=== PATIENT | female | born 1990 ===

== ENCOUNTER 2016-09-29 15:31 | Inpatient (IN) | payer OTHER ==
--- NOTE | 2016-09-29 15:51 | ED PDOC ---
HPI: Headache Time Seen by Provider: 09/29/16 15:36 Chief Complaint (Nursing): Headache Chief Complaint (Provider): Headache History Per: Patient History/Exam Limitations: no limitations Onset/Duration Of Symptoms: Hrs Current Symptoms Are (Timing): Still Present Severity: Moderate Quality: "Pain" Associated Symptoms: Blurred Vision, Extremity Weakness Additional Complaint(s): Patient is a 26 year old female who is reportedly 23 weeks , presents to ED for left sided headache with dizziness that began last night. States she woke this morning at 0700 with left facial and left arm numbness and palpations. Patient notes a history of [place] palsy a year ago on the left side, instructed to come to ED by [place] as pt was cleared by obgyn but predominant symptoms were neurological. NIHSS Stroke Scale - Date/Time Evaluation Performed Date Performed: 09/29/16 Time Performed: 15:35 When Was NIHSS Performed: Baseline - How Severe is the Stroke Level of Consciousness: 0=Alert LOC to Questions: 0=Both comments correct LOC to commands: 0=Obeys both correctly Best Gaze: 0=Normal Visual: 0=No visual loss Facial: 1=Minor asymmetry Motor Arm - Left: 0=No drift Motor Arm - Right: 0=No drift Motor Leg - Left: 0=No drift Motor Leg - Right: 0=No drift Limb Ataxia: 0=Absent Sensory: 0=Normal Best Language: 0=No aphasia Dysarthia: 0=Normal articulation Extinction & Inattention (Neglect): 0=Normal, no object Score: 1 Severity Of Stroke: 1-4 = Minor Stroke Past Medical History Reviewed: Historical Data, Nursing Documentation, Vital Signs Vital Signs: Last Vital Signs Temp 98.5 F 09/29/16 15:37 Pulse 78 09/29/16 15:37 Resp 20 09/29/16 15:37 BP 117/53 L 09/29/16 15:37 Pulse Ox 100 09/29/16 15:37 - Medical History PMH: Asthma (no episodes x8 years), Migraine Denies: Kidney Stones, Chronic Kidney Disease - Surgical History Surgical History: Appendectomy, Tonsillectomy - Family History Family History: States: Hypertension - Living Arrangements Living Arrangements: With Family - Social History Current smoker - smoking cessation education provided: No Alcohol: None Drugs: Denies - Immunization History Hx Tetanus Toxoid Vaccination: No Hx Influenza Vaccination: No Hx Pneumococcal Vaccination: No - Home Medications Home Medications: Ambulatory Orders Medication Instructions Recorded Levothyroxine [Synthroid] 50 mcg PO DAILY 09/29/16 - Allergies Allergies/Adverse Reactions: Allergies Allergy/AdvReac Type Severity Reaction Status Date / Time nitrofurantoin Allergy RASH Verified 09/29/16 15:37 [From Macrobid] nitrofurantoin Allergy RASH Verified 09/29/16 15:37 macrocrystalline [From Macrobid] Review of Systems ROS Statement: Except As Marked, All Systems Reviewed And Found Negative Constitutional: Negative for: Fever Eyes: Negative for: Vision Change Cardiovascular: Positive for: Palpitations. Negative for: Chest Pain, Light Headedness Respiratory: Negative for: Shortness of Breath Gastrointestinal: Negative for: Nausea, Vomiting Musculoskeletal: Negative for: Neck Pain, Back Pain Neurological: Positive for: Numbness (left arm, left face), Headache, Dizziness Physical Exam - Reviewed Nursing Documentation Reviewed: Yes Vital Signs Reviewed: Yes - Physical Exam Appears: Positive for: Non-toxic, No Acute Distress Head Exam: Positive for: ATRAUMATIC Skin: Positive for: Normal Color, Warm Eye Exam: Positive for: Normal appearance, EOMI, PERRL ENT: Positive for: Normal ENT Inspection Neck: Positive for: Normal, Painless ROM Cardiovascular/Chest: Positive for: Regular Rate, Rhythm. Negative for: Murmur Respiratory: Positive for: Normal Breath Sounds. Negative for: Respiratory Distress Gastrointestinal/Abdominal: Positive for: Normal Exam Extremity: Positive for: Normal ROM, Other (LE strength 5/5. however left upper extremity with slightly decreased sensation ) Neurologic/Psych: Positive for: Alert, box repairer II-XII (slight right sided facial droop), Oriented, Gait (stable), Facial Droop (slight right). Negative for: Motor/Sensory Deficits, Aphasia - Laboratory Results Result Diagrams: 09/29/16 17:30 09/29/16 16:10 - ECG O2 Sat by Pulse Oximetry: 100 (RA) Pulse Ox Interpretation: Normal Medical Decision Making Medical Decision Making: Time: 1545 Initial impression: female with Headache with numbness rule out acute stroke, bleed Initial plan: -- CT-head stat (MRI not available immediately so will do CT head. Explained risks of radiation scatter to abdomen but will shield pt. Benefits include the readily available test of CT head to rule out large bleed or stroke. pt agreeable to test and can verbalize risks and benefits.) -- CMP -- BMP -- Urine dip -- CBC Time: 19:05 Reevaluated says she still has left arm numbness, dizziness, and headache. CT head done- no acute findings -0 will hold off on giving ASA pending ob consultation. Will admit to medicine brand ambassador promotional model, also called neurology consult for her. Time: 19:[address] Alexandre, will accept patient under his care. Called Neuro brand ambassador promotional model and OB brand ambassador promotional model DR Mendoza for consult. DX: , parasthesias rule out stroke Scribe Attestation: Documented by Mariana Godoy acting as a scribe for Gordy Phillips MD MD Scribe Attestation: All medical record entries made by the Scribe were at my direction and personally dictated by me. I have reviewed the chart and agree that the record accurately reflects my personal performance of the history, physical exam, medical decision making, and the department course for this patient. I have also personally directed, reviewed, and agree with the discharge instructions and disposition. Disposition - Clinical Impression Clinical Impression: Headache, Weakness of one side of body, - Patient ED Disposition Is Patient to be Admitted: Yes - Disposition Disposition Time: 18:00 Condition: FAIR rTPA Inclusion/Exclusion - Refusal of Treatment Patient Refused Treatment: No - Inclusion Criteria for Altepase Patient is 18 years or Older: Yes Clinical DX Ischemic Stroke Cause Neurological Deficit: No Time of Onset Established Less Than 270 Mins Before TX Begin: No Risk/Benefit Discussed With Patient/Family Member Present: No - Exclusion Criteria for Altepase Uncontrolled Hypertension at Time of TX (SBP>185 or DBP>110): No Active Internal Bleeding: No Known Bleeding Diathesis: No Evidence of an Intracranial Hemorrhage: No Evidence Major Acute Infarct w/ Signs Greater Than 1/3 MCA: No Suspicion of Subarachnoid Bleed on PreTX Eval(CT: neg bleed): No - Warning to TPA With Conditions Following Conditions Weighed Against Anticipated Benefit: No
[2016-09-29 16:33] LABS: ALB/GLOB RATIO 1.1 (1.0-2.1); ALKALINE PHOSPHATASE 74 U/L (38-126); ALT/SGPT 26 U/L (9-52); AST/SGOT 25 U/L (14-36); BILIRUBIN,TOTAL 0.3 mg/dl (0.2-1.3); BLOOD UREA NITROGEN 6 mg/dl (7-17); CALCIUM 9.3 mg/dL (8.4-10.2); CARBON DIOXIDE 19 mmol/L (22-30); CHLORIDE 106 mmol/L (98-107); GFR AFRICAN-AMERICAN > 60; GLUCOSE,RANDOM 89 mg/dL (65-105); POTASSIUM 3.9 MMOL/L (3.6-5.0); SODIUM 139 mmol/l (132-148); TOTAL PROTEIN 7.2 G/DL (6.3-8.2)
[2016-09-29 17:48] LABS: BASO % 0.2 % (0.0-2.0); EOS # 0.1 K/uL (0.0-0.7); EOS % 0.8 % (0.0-4.0); LYMPH # 2.2 K/uL (1.0-4.3); LYMPH % 19.3 % (20.0-40.0); MEAN CELL VOLUME 81.6 fl (81.0-99.0); MEAN CORPUSCULAR HEMOGLOBIN 26.4 pg (27.0-31.0); MEAN CORPUSCULAR HGB CONC 32.4 g/dL (33.0-37.0); MEAN PLATELET VOLUME 8.6 fl (7.2-11.7); MONO # 0.6 K/uL (0.0-0.8); MONO % 5.3 % (0.0-10.0); NEUT # 8.5 K/uL (1.8-7.0); NEUT % 74.4 % (50.0-75.0); NRBC % 0.1 % (0.0-0.0); WHITE BLOOD COUNT 11.5 K/uL (4.8-10.8)
[2016-09-29] MEDS ORDERED: Sodium Chloride 0.9% 1,000 ML IV STA (18:31)
--- NOTE | 2016-09-29 18:34 | CT ---
PROCEDURE: CT HEAD WITHOUT CONTRAST. HISTORY: headache left sided COMPARISON: Comparison is made to the previous study dated 09/04/2015 TECHNIQUE: Axial computed tomography images were obtained through the head/brain without intravenous contrast. Radiation dose: Total exam DLP = 735.77 mGy-cm. FINDINGS: HEMORRHAGE: No intracranial hemorrhage. BRAIN: No mass effect or edema. No atrophy or chronic microvascular ischemic changes. VENTRICLES: Unremarkable. No hydrocephalus. CALVARIUM: Unremarkable. PARANASAL SINUSES: Unremarkable as visualized. No significant inflammatory changes. MASTOID AIR CELLS: Unremarkable as visualized. No inflammatory changes. OTHER FINDINGS: None. IMPRESSION: No evidence of acute intracranial hemorrhage intracranial collection mass effect or midline shift.
[2016-09-29 19:36] LABS: RBC URINE 3 /hpf (0-3); URINE BACTERIA OCC (<OCC); URINE BILIRUBIN NEGATIVE (NEGATIVE); URINE BLOOD NEGATIVE (NEGATIVE); URINE COLOR YELLOW (YELLOW); URINE GLUCOSE (UA) NEG (Normal); URINE KETONE TRACE mg/dL (NEGATIVE); URINE LEUKOCYTE ESTERASE LARGE Leu/uL (Negative); URINE PROTEIN NEGATIVE (NEGATIVE); URINE UROBILINOGEN 0.2-1.0 mg/dL (0.2-1.0); WBC URINE 3 /hpf (0-5)
[2016-09-29] MEDS: Dextrose 5%/0.45% NS 1,000 ML IV SCH (23:12)
--- NOTE | 2016-09-30 01:19 | CP.PCM.CON ---
History of Present Illness - History of Present Illness History of Present Illness: OB consult note 26 y/o F with PMHx of migraine presented to the hosp because of sudden onset headaches in the L/parietal area associated with shoulder and arm pain and L/UE paresthesias. Patient is 23.4w and was evaluated in [place] yesterday before being transferred to ED and later admitted in the telemetry unit. We are called to evaluate patient for associated with headaches. At the time of exam headache has improved but she still c/o of L/shoulder pain. Denies nausea, vomiting, fever, CP, blurry vision, SOB. 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 She was pain free until 2 months ago that she started c/o headaches, later she was diagnosed with Hypothyroidism and started taking Levothyroxine 50mcg daily. Since then, headaches are less often but today she decided to come to the hosp after feeling, drowsy while driving and having severe headache and shoulder pain. She reports positive movements, denies vaginal bleeding, loss of fluid or contractions. Review of Systems - Constitutional Constitutional: Headache - EENT Eyes: Blurred Vision (only when headache is severe) Nose/Mouth/Throat: absent: Nasal Congestion - Cardiovascular Cardiovascular: Rapid Heart Rate (only when headache is severe). absent: Chest Pain - Respiratory Respiratory: absent: Cough, Dyspnea - Gastrointestinal Gastrointestinal: absent: Abdominal Pain - Genitourinary Genitourinary: absent: Difficulty Urinating, Dysuria - Reproductive: Female Reproductive:Female: As Per HPI. absent: Pelvic Pain - Musculoskeletal Musculoskeletal: As Per HPI - Integumentary Integumentary: absent: Lesions - Neurological Neurological: As Per HPI - Psychiatric Psychiatric: absent: Depression Past Patient History - Infectious Disease Hx of Infectious Diseases: None - Past Medical History & Family History Past Medical History?: Yes - Past Social History Smoking Status: Never Smoked - PULMONARY Hx Asthma: Yes (no episodes x8 years) - NEUROLOGICAL Hx Migraine: Yes Other/Comment: Juliette Palsy - HEENT Hx HEENT Problems: No - RENAL Hx Chronic Kidney Disease: No - ENDOCRINE/METABOLIC Hx Endocrine Disorders: Yes Hx Hypothyroidism: Yes - HEMATOLOGICAL/ONCOLOGICAL Hx Blood Disorders: No - MUSCULOSKELETAL/RHEUMATOLOGICAL Hx Falls: No - PSYCHIATRIC Hx Substance Use: No - SURGICAL HISTORY Hx Appendectomy: Yes Hx Tonsillectomy: Yes - ANESTHESIA Hx Anesthesia: Yes Hx Anesthesia Reactions: No Hx Malignant Hyperthermia: No Meds Allergies/Adverse Reactions: Allergies Allergy/AdvReac Type Severity Reaction Status Date / Time nitrofurantoin Allergy RASH Verified 09/29/16 15:37 [From Macrobid] nitrofurantoin Allergy RASH Verified 09/29/16 15:37 macrocrystalline [From Macrobid] - Medications Medications: Current Medications Acetaminophen (Tylenol 325mg Tab) 650 mg PO Q4 PRN PRN Reason: Pain, moderate (4-7) Dextrose/Sodium Chloride (Dextrose 5%/0.45% Ns 1000 Ml) 1,000 mls @ 100 mls/hr IV .Q10H GABBY Last Admin: 09/29/16 23:12 Dose: 100 mls/hr Physical Exam - Constitutional Appears: Non-toxic, No Acute Distress - Head Exam Head Exam: ATRAUMATIC, NORMAL INSPECTION - Eye Exam Eye Exam: Normal appearance, PERRL. absent: Nystagmus - ENT Exam ENT Exam: Mucous Membranes Moist - Neck Exam Neck exam: Positive for: Normal Inspection - Respiratory Exam Respiratory Exam: Clear to Auscultation Bilateral, NORMAL BREATHING PATTERN - Cardiovascular Exam Cardiovascular Exam: REGULAR RHYTHM, +S1, +S2. absent: Systolic Murmur - GI/Abdominal Exam GI & Abdominal Exam: Normal Bowel Sounds, Soft Additional comments: Uterus gravis. - Extremities Exam Extremities exam: Positive for: normal inspection - Back Exam Back exam: NORMAL INSPECTION. absent: CVA tenderness (L), CVA tenderness (R) - Neurological Exam Neurological exam: Alert, Oriented x3 - Psychiatric Exam Psychiatric exam: Normal Affect, Normal Mood - Skin Skin Exam: Intact, Normal Color Results - Vital Signs Recent Vital Signs: Last Vital Signs Temp 98 F 09/30/16 00:22 Pulse 80 09/30/16 00:22 Resp 20 09/30/16 00:22 BP 103/65 09/30/16 00:22 Pulse Ox 99 09/30/16 00:22 - Labs Result Diagrams: 09/29/16 17:30 09/29/16 16:10 Assessment & Plan - Assessment and Plan (Free Text) Assessment: Assessment 26 y/o IUP at 23.4w presents for severe headaches Plan 1- (Stable) -No signs of labor -Cont vitamins -Will revaluate as needed 2- Headaches(Improved) -Hx of migraine and Moon's palsy -S/p IV magnesium sulfate -F/U brain MRI on 09/30/16(CT Head WNL) -Cont Tylenol PRN for pain -VS, CMP: WNL 3-Hypothyroidism(Stable) -Cont Levothyroxine 50mcg daily
[2016-09-30] MEDS: Prenatal Multivit/Folic Acid/Iron Tab PO SCH (08:44)
[2016-09-30] MEDS: Dextrose 5%/0.45% NS 1,000 ML IV SCH ×2 (11:11→20:42)
--- NOTE | 2016-09-30 12:12 | CP.PCM.CON ---
History of Present Illness - History of Present Illness History of Present Illness: Ms. Zuleta is a 26-year-old woman, who is currently 23 weeks , with a past medical history significant for migraine headaches and hypothyroidism who has had several episodes of left side numbness and weakness in the past associated with headache. She presented to the ED yesterday after experiencing a headache along with dizziness that started in the morning when she was driving her mother to work. She woke up with a headache and felt that she was having decreased sensation on the left side of her face and arm. She had presented with a similar episode about one year ago, that also involved a left facial droop. She was diagnosed with Moon's palsy. These symptoms resolved completely in the past. I was called last night and discussed the case with nursing and obstetrics. I recommended 2 grams of magnesium sulfate IV for the headache. The headache essentially resolved. However, this morning, she continues to have some left side paresthesias involving the face and arm. Review of Systems - Review of Systems All systems: reviewed and no additional remarkable complaints except - Constitutional Constitutional: As Per HPI - EENT Eyes: As Per HPI Ears: As Per HPI Nose/Mouth/Throat: As Per HPI - Cardiovascular Cardiovascular: As Per HPI - Respiratory Respiratory: As Per HPI - Gastrointestinal Gastrointestinal: As Per HPI - Reproductive: Female Reproductive:Female: As Per HPI - Menstruation Menstruation: As Per HPI - Neurological Neurological: Abnormal Gait, Abnormal Movements, Disequilibrium, Dizziness, Focal Weakness, Headaches, Paresthesias, Tingling, Vertigo, Weakness - Psychiatric Psychiatric: As Per HPI Past Patient History - Infectious Disease Hx of Infectious Diseases: None - Past Medical History & Family History Past Medical History?: Yes - Past Social History Smoking Status: Never Smoked - PULMONARY Hx Asthma: Yes (no episodes x8 years) - NEUROLOGICAL Hx Migraine: Yes Other/Comment: [place] Palsy - HEENT Hx HEENT Problems: No - RENAL Hx Chronic Kidney Disease: No - ENDOCRINE/METABOLIC Hx Endocrine Disorders: Yes Hx Hypothyroidism: Yes - HEMATOLOGICAL/ONCOLOGICAL Hx Blood Disorders: No - MUSCULOSKELETAL/RHEUMATOLOGICAL Hx Falls: No - PSYCHIATRIC Hx Substance Use: No - SURGICAL HISTORY Hx Appendectomy: Yes Hx Tonsillectomy: Yes - ANESTHESIA Hx Anesthesia: Yes Hx Anesthesia Reactions: No Hx Malignant Hyperthermia: No Meds Allergies/Adverse Reactions: Allergies Allergy/AdvReac Type Severity Reaction Status Date / Time nitrofurantoin Allergy RASH Verified 09/29/16 15:37 [From Macrobid] nitrofurantoin Allergy RASH Verified 09/29/16 15:37 macrocrystalline [From Macrobid] - Medications Medications: Current Medications Acetaminophen (Tylenol 325mg Tab) 650 mg PO Q4 PRN PRN Reason: Pain, moderate (4-7) Last Admin: 09/30/16 08:44 Dose: 650 mg Dextrose/Sodium Chloride (Dextrose 5%/0.45% Ns 1000 Ml) 1,000 mls @ 100 mls/hr IV .Q10H GABBY Last Admin: 09/30/16 11:11 Dose: 100 mls/hr Multivit/Folic Acid/Iron () 1 tab PO DAILY GABBY Last Admin: 09/30/16 08:44 Dose: 1 tab Physical Exam - Head Exam Head Exam: ATRAUMATIC - Eye Exam Eye Exam: EOMI, Normal appearance Pupil Exam: NORMAL ACCOMODATION, PERRL - ENT Exam ENT Exam: Mucous Membranes Moist, Normal Exam - Neck Exam Neck exam: Positive for: Normal Inspection - Cardiovascular Exam Cardiovascular Exam: REGULAR RHYTHM - Neurological Exam Neurological exam: Abnormal Gait, CN II-XII Intact, Motor Sensory Deficit Additional comments: Left face arm and leg with decreased sensation to light touch and pain; Right side was normal. Reflexes were brisk on the left side as compared with the right. Strength was 4/5 proximally and distally in upper and lower extremities as compared to the right, which was 5/5 in strength proximally and distally in the upper and lower extremities. Gait was wide based, Romberg was negative. Results - Vital Signs Recent Vital Signs: Last Vital Signs Temp 97.7 F 09/30/16 08:20 Pulse 86 09/30/16 08:20 Resp 18 09/30/16 08:20 BP 111/75 09/30/16 08:20 Pulse Ox 100 09/30/16 08:20 - Labs Result Diagrams: 09/29/16 17:30 09/29/16 16:10 - Imaging and Cardiology CT scan - head Status: Image reviewed by me (No acute findings of hypo or hyperdensite were noted. Slight asymmetry in the ventricular system, could be normal.) Assessment & Plan (1) Complicated migraine Status: Acute Priority: High Diagnosis Date: 09/30/16 Comment: 1. MRI of the brain without contrast to rule out infarct. 2. Continue Magnesium PO as Magnesium Oxide 500 mg BID. 3. Continue fluids and management per primary care and Ob. (2) Weakness of one side of body Status: Acute Priority: High Diagnosis Date: 09/30/16 Comment: Likely secondary to complicated migraine; however, acute ischemic stroke should be ruled out with MRI of the brain. Would avoid using any triptan medications at a future date since these can potentiate infarcts in patients with complicated migraine. Depending on the MRI results and whether or not it is considered safe by Ob, aspirin 81 mg daily may be an option.
--- NOTE | 2016-09-30 12:53 | HP ---
HISTORY OF PRESENT ILLNESS: The patient is a 26-year-old female who was admitted via the Emergency Room because of complaints of facial numbness with left arm pain and paresthesias associated with cora e dizziness for several days prior to presentation, worse on the day of admission. She is 24 weeks p regnant and has been followed up by Dr. Panda and also by the [facility] unit as an outpatient. She h as been worked up as an outpatient for recurrent migraines and has had an MRI of the brain and Lyme t iters done. The Lyme titers were all positive and she was supposed to see a neurologist, but has not been able to find neurology within her plan. PAST MEDICAL HISTORY: Remarkable for chronic recurrent migraine headaches. FAMILY HISTORY: Remarkable for mother who had a brain tumor. REVIEW OF SYSTEMS: Essentially remarkable for occasional headaches. PHYSICAL EXAMINATION: GENERAL: The patient is alert, oriented, appears somewhat anxious. VITAL SIGNS: Blood pressure 111/75, pulse of 86, respirations 18. She is afebrile. O2 sat 100% on room air. NEUROLOGIC: She indicates facial asymmetry and pain in the left arm has resolved this morning and th at she feels much better. HEENT: Pupils equal, round and react to light and accommodation. Mouth shows fair hygiene. NECK: JVP flat. LUNGS: Clear. HEART: Regular. No murmurs or gallop. BREASTS: Normal. EXTREMITIES: Shows no edema or cyanosis. CENTRAL NERVOUS SYSTEM: Grossly intact. LABORATORY DATA: WBC 11.5, hemoglobin 10.1, platelet count of 316,000. Sodium of 139, potassium 3.9 , BUN of 6, creatinine 0.3. CT scan of the brain done in the Emergency Room shows no evidence of int racranial hemorrhage, intracranial collection or mass effect. IMPRESSION: Numbness, tingling of left arm and pain associated with facial asymmetry which has now r esolved. It is probably secondary to complicated migraine headaches, but in view of the fact that th e patient has a positive titer for Lyme disease will need a neurology evaluation to rule out other CN S pathology. , being followed by her [facility]. The [facility] group has already seen the patient this morning and indicates that is stable. With neurology evaluation and if cleared, will probably discharge and follow up as an outpatient. The question would be treatment for chronic Lyme if neurology thinks that is necessary. Alberto Alexandre MD cc: 62 TT: 09/30/2016 12:52:51 mn
[2016-09-30] MEDS: Magnesium Oxide 400 mg Tab UD PO SCH (16:56)
--- NOTE | 2016-09-30 18:43 | MRI ---
PROCEDURE: MRI BRAIN WITHOUT CONTRAST HISTORY: headache COMPARISON: None. TECHNIQUE: Multiplanar, multisequence MR images of the brain were obtained without intravenous contrast enhancement. FINDINGS: HEMORRHAGE: None DWI: No evidence of an acute or early subacute infarction. BRAIN PARENCHYMA: No mass effect or edema. No atrophy or chronic microvascular ischemic changes. Mild pituitary hypertrophy is noted consistent with status. Normal vascular flow voids are seen at the skull base. VENTRICLES: Unremarkable. No hydrocephalus. CRANIUM: Unremarkable. ORBITS: Grossly unremarkable. PARANASAL SINUSES/MASTOIDS: Clear VASCULAR SYSTEM: Skull base flow voids intact. OTHER FINDINGS: None. IMPRESSION: Unremarkable non contrast enhanced MRI of the brain. Mild pituitary hypertrophy consistent with status.
[2016-10-01] MEDS: Dextrose 5%/0.45% NS 1,000 ML IV SCH (05:08)
[2016-10-01 05:23] VITALS: O2SAT 99
[2016-10-01 08:07] VITALS: BP 92/57; PULSE 85; RESP 18; TEMP 98.7
[2016-10-01] MEDS: Prenatal Multivit/Folic Acid/Iron Tab PO SCH (08:41)
[2016-10-01] MEDS: Magnesium Oxide 400 mg Tab UD PO SCH (08:41)
--- NOTE | 2016-10-01 09:46 | CP.PCM.DIS ---
Provider - Provider Date of Admission: 09/30/16 14:39 Attending physician: Alberto Alexandre MD Primary care physician: Radha Lopez MD Time Spent in preparation of Discharge (in minutes): 30 Diagnosis - Discharge Diagnosis (1) Weakness of one side of body Status: Acute Priority: High Diagnosis Date: 09/30/16 (2) Headache Status: Acute (3) Status: Acute (4) Complicated migraine Status: Acute Priority: High Diagnosis Date: 09/30/16 Hospital Course - Lab Results Lab Results: Most Recent Lab Values WBC 11.5 K/uL (4.8-10.8) H 09/29/16 17:30 RBC 3.80 Mil/uL (3.80-5.20) 09/29/16 17:30 Hgb 10.1 g/dL (12.0-16.0) L 09/29/16 17:30 Hct 31.0 % (34.0-47.0) L 09/29/16 17:30 MCV 81.6 fl (81.0-99.0) 09/29/16 17:30 MCH 26.4 pg (27.0-31.0) L 09/29/16 17:30 MCHC 32.4 g/dL (33.0-37.0) L 09/29/16 17:30 RDW 14.0 % (11.5-14.5) 09/29/16 17:30 Plt Count 316 K/uL (130-400) 09/29/16 17:30 MPV 8.6 fl (7.2-11.7) 09/29/16 17:30 Neut % (Auto) 74.4 % (50.0-75.0) 09/29/16 17:30 Lymph % (Auto) 19.3 % (20.0-40.0) L 09/29/16 17:30 [place] % (Auto) 5.3 % (0.0-10.0) 09/29/16 17:30 Eos % (Auto) 0.8 % (0.0-4.0) 09/29/16 17:30 Baso % (Auto) 0.2 % (0.0-2.0) 09/29/16 17:30 Neut # 8.5 K/uL (1.8-7.0) H 09/29/16 17:30 Lymph # 2.2 K/uL (1.0-4.3) 09/29/16 17:30 [place] # 0.6 K/uL (0.0-0.8) 09/29/16 17:30 Eos # 0.1 K/uL (0.0-0.7) 09/29/16 17:30 Baso # 0.0 K/uL (0.0-0.2) 09/29/16 17:30 Sodium 139 mmol/l (132-148) 09/29/16 16:10 Potassium 3.9 MMOL/L (3.6-5.0) 09/29/16 16:10 Chloride 106 mmol/L (98-107) 09/29/16 16:10 Carbon Dioxide 19 mmol/L (22-30) L 09/29/16 16:10 Anion Gap 18 (10-20) 09/29/16 16:10 BUN 6 mg/dl (7-17) L 09/29/16 16:10 Creatinine 0.3 mg/dL (0.7-1.2) L 09/29/16 16:10 Est GFR ( Amer) > 60 09/29/16 16:10 Est GFR (Non-Af Amer) > 60 09/29/16 16:10 Random Glucose 89 mg/dL (65-105) 09/29/16 16:10 Calcium 9.3 mg/dL (8.4-10.2) 09/29/16 16:10 Total Bilirubin 0.3 mg/dl (0.2-1.3) 09/29/16 16:10 AST 25 U/L (14-36) 09/29/16 16:10 ALT 26 U/L (9-52) 09/29/16 16:10 Alkaline Phosphatase 74 U/L (38-126) 09/29/16 16:10 Total Protein 7.2 G/DL (6.3-8.2) 09/29/16 16:10 Albumin 3.8 g/dL (3.5-5.0) 09/29/16 16:10 Globulin 3.3 gm/dL (2.2-3.9) 09/29/16 16:10 Albumin/Globulin Ratio 1.1 (1.0-2.1) 09/29/16 16:10 Urine Color Yellow (YELLOW) 09/29/16 19:00 Urine Clarity Slighty-cloudy (Clear) 09/29/16 19:00 Urine pH 7.0 (5.0-8.0) 09/29/16 19:00 Ur Specific [place] 1.009 (1.003-1.030) 09/29/16 19:00 Urine Protein Negative mg/dL (NEGATIVE) 09/29/16 19:00 Urine Glucose (UA) Neg mg/dL (Normal) 09/29/16 19:00 Urine Ketones Trace mg/dL (NEGATIVE) 09/29/16 19:00 Urine Blood Negative (NEGATIVE) 09/29/16 19:00 Urine Nitrate Negative (NEGATIVE) 09/29/16 19:00 Urine Bilirubin Negative (NEGATIVE) 09/29/16 19:00 Urine Urobilinogen 0.2-1.0 mg/dL (0.2-1.0) 09/29/16 19:00 Ur Leukocyte Esterase Large [place]/uL (Negative) 09/29/16 19:00 Urine RBC (Auto) 3 /hpf (0-3) 09/29/16 19:00 Urine Microscopic WBC 3 /hpf (0-5) 09/29/16 19:00 Ur Squamous Epith Cells 9 /hpf (0-5) H 09/29/16 19:00 Urine Bacteria Occ (<OCC) H 09/29/16 19:00 - Hospital Course Hospital Course: HEADACHES AND BODY WEAKNESS RESOLVED ABNORMAL LYME DZ PROFILE APPEARS OLD--NEUROLOGY DOES NOT THINK THAT RX IS NEEDE WILL ASK PT TO FOLLOW UP WITH INFECTIOUS DZ OUT PT FOR FURTHER RX Discharge Exam - Head Exam Head Exam: ATRAUMATIC - Eye Exam Eye Exam: EOMI, Normal appearance, PERRL Pupil Exam: NORMAL ACCOMODATION, PERRL - GI/Abdominal Exam GI & Abdominal Exam: Normal Bowel Sounds - Rectal Exam Rectal Exam: NORMAL INSPECTION - Neurological Exam Neurological exam: Alert, CN II-XII Intact, Normal Gait, Oriented x3, Reflexes Normal - Psychiatric Exam Psychiatric exam: Normal Affect, Normal Mood - Skin Skin Exam: Dry, Intact, Normal Color, Warm Discharge Plan - Follow Up Plan Condition: FAIR Disposition: HOME/ ROUTINE Patient education suggested?: Yes Additional Instructions: C ASA OK TO TAKE MAGNESSIUM X FEW DAYS Referrals: Radha Lopez MD [Primary Care Provider] -
--- NOTE | 2016-10-01 12:26 | CP.PCM.PN ---
Subjective - Date & Time of Evaluation Date of Evaluation: 10/01/16 Time of Evaluation: 12:24 - Subjective Subjective: Ms. Zuleta was seen and examined today at bedside. She was in NAD and stated that she was feeling much better. Her headache had improved and she had more sensation on the left side today. She did not have any trouble with ambulation. Objective - Vital Signs/Intake and Output Vital Signs (last 24 hours): Temp Pulse Resp BP Pulse Ox 98.7 F 85 18 92/57 L 99 10/01/16 08:00 10/01/16 09:00 10/01/16 08:00 10/01/16 08:00 10/01/16 08:00 - Medications Medications: Current Medications Acetaminophen (Tylenol 325mg Tab) 650 mg PO Q4 PRN PRN Reason: Pain, moderate (4-7) Last Admin: 09/30/16 08:44 Dose: 650 mg Aspirin (Aspirin Chewable) 81 mg PO DAILY [facility] Last Admin: 10/01/16 08:41 Dose: 81 mg Dextrose/Sodium Chloride (Dextrose 5%/0.45% Ns 1000 Ml) 1,000 mls @ 100 mls/hr IV .Q10H [facility] Last Admin: 10/01/16 05:08 Dose: 100 mls/hr Levothyroxine Sodium (Synthroid) 50 mcg PO DAILY@0630 [facility] Magnesium Oxide (Mag-Ox) 400 mg PO BID [facility] Last Admin: 10/01/16 08:41 Dose: 400 mg Multivit/Folic Acid/Iron () 1 tab PO DAILY [facility] Last Admin: 10/01/16 08:41 Dose: 1 tab - Constitutional Appears: Well, Non-toxic, No Acute Distress - Head Exam Head Exam: ATRAUMATIC - Eye Exam Eye Exam: EOMI, Normal appearance Pupil Exam: PERRL - Cardiovascular Exam Cardiovascular Exam: REGULAR RHYTHM, +S1, +S2. absent: Murmur - GI/Abdominal Exam GI & Abdominal Exam: Soft, Normal Bowel Sounds. absent: Tenderness - Neurological Exam Neurological Exam: Alert, Awake, CN II-XII Intact, Normal Gait, Oriented x3 Neuro motor strength exam: Left Upper Extremity: 4, Right Upper Extremity: 5, Left Lower Extremity: 5, Right Lower Extremity: 5 Additional comments: Sensation slightly asymmetrical to light touch on the left side of the face as compared with the right. Otherwise improved on the upper and lower extremity compared with yesterday's examination. Assessment and Plan (1) Complicated migraine Assessment & Plan: Continue migraine prophylaxis with Magnesium Oxide 400 mg BID and follow-up with outpatient neurology in 2 weeks. Status: Acute (2) Weakness of one side of body Assessment & Plan: This has improved significantly and MRI of the brain was normal (no stroke). Will likely continue to improve. Status: Acute
[2016-10-02] MEDS ORDERED: Levothyroxine 50 MCG TAB PO SCH (06:30)
== END 2016-10-01 12:50 | disposition home or self-care (01) | DRG 886 ==
LOC: H.ER 15:31 → H.ERHOLD 19:03 → H.TEL 21:41 → OBSVTOIN 09-30 14:39
PROVIDERS: ADMIT Internal Medicine Pulmonary Disease; ATTEND Internal Medicine Pulmonary Disease
DX: O99.352 Diseases of the nervous system complicating pregnancy, second trimester (principal); E03.9 Hypothyroidism, unspecified; Z3A.24 24 weeks gestation of pregnancy; G43.109 Migraine with aura, not intractable, without status migrainosus; R53.1 Weakness; R20.9 Unspecified disturbances of skin sensation; J45.909 Unspecified asthma, uncomplicated

== ENCOUNTER → 2016-09-29 | Emergency (ER) | payer OTHER ==
--- NOTE | 2016-09-29 15:15 | OBHP ---
Datetime: 09/29/2016 15:06 IP Adm Impression: , intrauterine IP Admit Plan: Discharge home Admit Comment, IP Provider: 26 yo edc 01/18 @ 24.1wk with c/o left sided parietal guerra begining in back and radiating anteriorly associated with left shoulder and LUE paresthesias. She denies uterin e cramping or decreased fm, pprom or vag bleeding. no ob c/o. pt states she has h/o migraines but had no problems in prior pregs. pmhx: hypothyr diagnosed with current preg; asthma phsx: appy obhx: x3 medic: levothyroxine 50; pnv allerg: macrobid I; 24wks Headache P: refer to ED for eval. Abdomen - PN: Normal Lungs - PN: Normal Heart - PN: Normal General - PN: Normal FHR - Baseline A Provider: 140 Contraction Comments Provider: no EGA AdmitDate IP: 24.1 Vital Signs Provider: Within Normal Limits IP Chief Complaint: Other
== END | disposition home or self-care (01) ==
LOC: H.EROB2 13:28 → H.ERHOLD 19:21 → UNDOADMOB 19:21
DX: O26.92 Pregnancy related conditions, unspecified, second trimester (principal); O99.89 Other specified diseases and conditions complicating pregnancy, childbirth and the puerperium; R51 Headache; E03.9 Hypothyroidism, unspecified; Z3A.24 24 weeks gestation of pregnancy

== ENCOUNTER 2016-12-18 16:40 | Emergency (ER) | payer OTHER | END 2016-12-18 19:16 | disposition home or self-care (01) | LOC: H.EROB2 16:40 | DX: O47.03 False labor before 37 completed weeks of gestation, third trimester (principal); Z3A.35 35 weeks gestation of pregnancy ==

== ENCOUNTER 2017-01-08 13:03 | Emergency (ER) | payer OTHER ==
[2017-01-08 15:07] VITALS: BMI 25.3
--- NOTE | 2017-01-09 08:29 | OBADHP ---
Datetime: 01/09/2017 00:56 Admit Comment, IP Provider: 26 y.o with 39 weeks GA with EDC 01/16/17 by LMP and confirmed w ith first trimester US presenting with increased uterine contractions every 5 mintues that began at 8 pm on 01/08/17. pt reports contractions are increasing in intensity and last for 30 seconds. Pt also r eports scant vaginal bleeding since 8 pm as well. pt is GBS+. Pt denies fever, headache, dizziness, blurry vision, nausea or vomiting. 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 SHx: No smoking, alcohol or recreational drugs. allergies: macrobid( rash) Physical exam: see PE section Assessement: 1. 26 y.o with 39 weeks GA with EDC 01/16/17 by LMP and confirmed with first t rimester US presenting with increased uterine contractions every 5 mintues. 2. GBS positive plan: Admit to Labor and Delivery unit CBC, type and screen Penicillin V for GBS + IV Access monitoring Monitor labor progression Case discussed with on-call attending Dr Jostin Osman, PGY 1 Pelvic Type - PN: Adequate Extremities - PN: Normal Abdomen - PN: Normal Back - PN: Normal Lungs - PN: Normal Heart - PN: Normal Neurologic - PN: Normal HEENT - PN: Normal General - PN: Normal Presentation-Admit: Vertex FHR - Baseline A Provider: 140s Membranes, Provider: Ruptured Contraction Comments Provider: q2-4min Gestation - Est Wks by US: 39 weeks Vital Signs Provider: Reviewed; Within Normal Limits IP Chief Complaint: Uterine contractions NICHD Variability Prov Fetus A: Moderate 6-25bpm NICHD Accel Fetus A IP Provider: 15X15 FHR Category Provider Fetus A: Category I NICHD Decel Fetus A IP Provider: None Dilatation, Provider: 8 Effacement, Provider: 100 Station, Provider: 0 Genitourinary Exam: Normal EGA AdmitDate IP: 39.0 IP Adm Impression: Term, intrauterine IP Admit Plan: Admit to unit; Initiate labor protocol Datetime: 01/05/2017 12:27 Comments, ACOG Physical Exam: Internal pelvic: Dilation 1 cm, no fluid pooled. Datetime: 12/18/2016 18:59 Breast - PN: Normal Thyroid - PN: Normal IP Hx Assessment: The History has been Reviewed and is Current DTRs - PN: Normal
--- NOTE | 2017-01-09 08:40 | OBDS ---
DELIVERY PERSONNEL Delivery Doctor: Aminata Frankel MD Scrub Nurse: Yoli Long Director Of Teacher Education: Bernie Bowman RN Resident: Dr. Osman OBR MATERNAL INFORMATION Delivery Anesthesia: None Medications in Delivery: 20 units of Pitocin Estimated Blood Loss (ml): 200 Placenta Cultured: No Maternal Complications: None Provider Comments: Normal spontaneous vaginal delivery. Patient delivered viable female with Apgars of 9 and 9 at one and 5 minutes respectively. I nfant delivered via BEN position. Placenta delivered spontaneously. Perineum intact, no lacerations. Uterus firm and appropriately hemostatic following delivery. Patient tolerated delivery well. No comp lications EBL 200 mL. LABOR SUMMARY EDC: 01/16/2017 00:00 No. Babies in Womb: 1 Attempted: No Labor Anesthesia: None LABOR INFORMATION Reason for Induction: Not Applicable Onset of Labor: 01/09/2017 07:00 Complete Dilatation: 01/09/2017 01:10 Oxytocin: N/A Group B Beta Strep: Positive Antibiotics # of Doses: 1 Antibiotics Time of Last Dose: 0015 Steroids Given: None Reason Steroids Not Administered: Not Applicable MEMBRANES Membranes Rupture Method: Artificial Rupture of Membranes: 01/09/2017 00:50 Length of Rupture (hrs): 0.38 Amniotic Fluid Color: Clear Amniotic Fluid Amount: Moderate Amniotic Fluid Odor: Normal STAGES OF LABOR Stage 1 hrs: -5 Stage 1 min: -50 Stage 2 hrs: 0 Stage 2 min: 3 Stage 3 hrs: 0 Stage 3 min: 7 Total Time in Labor hrs: -5 Total Time in Labor min: -40 VAGINAL DELIVERY Episiotomy: None Laceration Extension: N/A Laceration Type: None Laceration Repair: Not Applicable Initial Vag Sponge Count: 15 Final Vag Sponge Count: 15 Initial Vag Sharps Count: 0 Final Vag Sharps Count: 0 Sponge Count Correct: Yes Sharps Count Correct: N/A BABY A INFORMATION Infant Delivery Date/Time: 01/09/2017 01:13 Method of Delivery: Vaginal Born in Route : No : N/A Forceps: N/A Vacuum Extraction: N/A Shoulder Dystocia : No SHOULDER DYSTOCIA BABY A Infant Delivery Date/Time: 01/09/2017 01:13 PRESENTATION/POSITION BABY A Presentation: Cephalic Cephalic Presentation: Vertex Breech Presentation: N/A PLACENTA INFORMATION BABY A Placenta Delivery Time : 01/09/2017 01:20 Placenta Method of Delivery: Spontaneous Placenta Status: Delivered SCORES BABY A Heart Rate 1 min: >100 bpm Resp Effort 1 min: Good Cry Reflex Irritability 1 min: Cough or Sneeze or Pulls Away Muscle Tone 1 min: Active Motion Color 1 min: Body [place], Extremities Blue Resuscitation Effort 1 min: N/A SCORE 1 MIN: 9 Heart Rate 5 min: >100 bpm Resp Effort 5 min: Good Cry Reflex Irritability 5 min: Cough or Sneeze or Pulls Away Muscle Tone 5 min: Active Motion Color 5 min: Body [place], Extremities Blue Resuscitation Effort 5 min: N/A SCORE 5 MIN: 9 INFORMATION BABY A Gestational Age at Delivery: 39.0 Gestational Status: Term Outcome : Liveborn Condition : Stable Sex: Female IDENTIFICATION/MEDS BABY A ID Band Number: [id number] ID Band Location: Left Leg; Left Arm WEIGHT/LENGTH BABY A Infant Birthweight (gms): 3415 Weight (lb): 7 Weight (oz): 8 CORD INFORMATION BABY A No. Cord Vessels: 3 Nuchal Cord : N/A Nuchal Cord Other: N/A True Knot: N/A Cord pH Baby Arterial: N/A Cord pH Baby Venous: N/A Cord Blood Taken: Yes Banking/Donate Info: N/A Suction: None ASSESSMENT BABY A Complications: None Physical Findings at Delivery: Within Normal Limits Physical Findings Other: immediate skin to skin performed after . Dr. Painter assessed NB at 0135 WNL Respirations: Appears Normal Assistant Press Operator/ALS Called : No Care By: Radha/Dr. Vaca Transferred To: Remains with Mother
== END 2017-01-08 15:17 | disposition home or self-care (01) ==
LOC: H.EROB2 13:03
DX: O47.1 False labor at or after 37 completed weeks of gestation (principal); Z3A.38 38 weeks gestation of pregnancy

== ENCOUNTER 2017-01-08 23:29 | Inpatient (IN) | payer OTHER ==
[2017-01-09 00:03] VITALS: BMI 26.2
[2017-01-09] MEDS ORDERED: Lactated Ringer's 1,000 ML IV SCH (00:03)
[2017-01-09] MEDS ORDERED: Penicillin G Potassium 5 MU in Sodium Chloride 0.9% 50 ML IVPB ONE (00:05)
[2017-01-09] MEDS ORDERED: Penicillin G 5 Million Unit Vial IVPB ONE (00:14)
[2017-01-09] MEDS ORDERED: Lidocaine 1% Inj (20ml) ONE (00:17)
[2017-01-09 00:41] VITALS: BP 122/84; PULSE 86; RESP 16; TEMP 98.7; O2SAT 99
--- NOTE | 2017-01-09 00:59 | OBPN ---
Datetime: 01/09/2017 00:56 IP Progress Impression: Normal progression of labor; Reassuring heart rate IP Informed Consent Obtain: Vaginal Delivery IP Procedures: Artificial ROM IP Progress Plan: Continue present management Membranes, Provider: Ruptured Contraction Comments Provider: q2-4min FHR - Baseline A Provider: 140s IP Progress Note Comment: Bulging membranes. AROM clear fluid. Both MWB/FWB reassuring at this mikayla e. Anticipate . Vital Signs Provider: Reviewed; Within Normal Limits NICHD Accel Fetus A IP Provider: 15X15 FHR Category Provider Fetus A: Category I NICHD Variability Prov Fetus A: Moderate 6-25bpm Dilatation, Provider: 8 Effacement, Provider: 100 Station, Provider: 0 NICHD Decel Fetus A IP Provider: None
[2017-01-09 01:05] LABS: BASO # 0.1 K/uL (0.0-0.2); BASO % 0.4 % (0.0-2.0); EOS # 0.1 K/uL (0.0-0.7); EOS % 0.3 % (0.0-4.0); HEMOGLOBIN 8.9 g/dL (12.0-16.0); LYMPH # 1.9 K/uL (1.0-4.3); LYMPH % 12.7 % (20.0-40.0); MEAN CELL VOLUME 68.9 fl (81.0-99.0); MEAN PLATELET VOLUME 9.3 fl (7.2-11.7); MONO # 0.8 K/uL (0.0-0.8); MONO % 5.2 % (0.0-10.0); NEUT # 12.4 K/uL (1.8-7.0); NEUT % 81.4 % (50.0-75.0); NRBC % 0.1 % (0.0-0.0); RBC 4.06 Mil/uL (3.80-5.20); RED CELL DISTRIBUTION WIDTH 18.2 % (11.5-14.5); WHITE BLOOD COUNT 15.3 K/uL (4.8-10.8)
[2017-01-09] MEDS ORDERED: Benzocaine/Menthol SPRAY TOP PRN ×2 (01:23→03:49)
[2017-01-09] MEDS ORDERED: Oxycodone/Acetaminophen 5/325 mg Tab PO PRN ×4 (01:23→03:49)
--- NOTE | 2017-01-09 17:47 | CP.PCM.CON ---
History of Present Illness - History of Present Illness History of Present Illness: Medicine consult reason: Hx [place] Palsy and positive lyme titers 26 yr old , post day # 0 s/p with PMHx of migraine headaches, [place] Palsy and gestational hypothyroidism, seen and examined at bedside. Patient sitting in bed, , in no acute distress. Patient denies skin rash, headaches, SOB, chest pain, weakness, visual changes or dizziness. She reports intermittent joint pain alleviated by tylenol. She has had no recurrence of the symptoms she experienced in september/2016 including headache/left eye twitching and mouth tension/deviation toward the right. Symptoms occurred for the first time 2 yrs ago in addition to a syncopal episode at that time. Patient reports she has seen in outpatient neurologist Dr. Mckeon whom instructed her to take Tylenol PRN , Mag Ox 400mg PO BID and otherwise for after delivery prescribed her Fioricet PRN for migraines, thus far she has a followup appt with Dr. Mckeon on 02/10/17. Patient reports she had an MRI and was told results were normal. Patient is asymptomatic and has no concerns or complaints at this time. Patient denies any history of tick bite or skin rash in the past. PMD: Dr. Altman ([place] [phone]) ObGyn: Dr. Fulton ([facility]) Neurologist: Dr. Mckeon (next appt 02/10/17) PMHx: migraine headaches, [place] Palsy, gestational hypothyroidism, Asthma (no maintenance medication, last exacerbation 10 yrs ago) SurgHx: Appendectomy 10yrs ago FHx: mother: hypothyroid, HTN, epilepsy, lupus, brain tumor excision, father unknown, 2 male siblings healthy, all children healthy SocHx: denies Etoh/cig/drugs, lives with and 3 children Meds: Levothyroxine 50 mcg QD, Iron TID, PNV Allergies: Nitrofurantoin (Macrobid)-rash MRI Brain 09/30/16: Unremarkable CT Head 09/29/16: No evidence of acute ICH, intracranial collection, mass effect of midline shift. Review of Systems - Review of Systems All systems: reviewed and no additional remarkable complaints except (for what is mentioned in HPI) Past Patient History - Infectious Disease Hx of Infectious Diseases: None - Past Medical History & Family History Past Medical History?: Yes - Past Social History Smoking Status: Never Smoked - PULMONARY Hx Asthma: Yes (no episodes x8 years) - NEUROLOGICAL Other/Comment: [place] Palsy - HEENT Hx HEENT Problems: No - RENAL Hx Chronic Kidney Disease: No Hx Kidney Stones: No - ENDOCRINE/METABOLIC Hx Endocrine Disorders: Yes Hx Hypothyroidism: Yes - HEMATOLOGICAL/ONCOLOGICAL Hx Blood Disorders: No - MUSCULOSKELETAL/RHEUMATOLOGICAL Hx Falls: No - PSYCHIATRIC Hx Substance Use: No - SURGICAL HISTORY Hx Appendectomy: Yes Hx Tonsillectomy: Yes - ANESTHESIA Hx Anesthesia: Yes Hx Anesthesia Reactions: No Hx Malignant Hyperthermia: No Meds Allergies/Adverse Reactions: Allergies Allergy/AdvReac Type Severity Reaction Status Date / Time nitrofurantoin Allergy RASH Verified 01/09/17 00:38 [From Macrobid] nitrofurantoin Allergy RASH Verified 01/09/17 00:38 macrocrystalline [From Macrobid] - Medications Medications: Current Medications Benzocaine/Menthol (Dermoplast) 1 sprays TOP PRN PRN PRN Reason: Perineal Discomfort Docusate Sodium (Colace) 100 mg PO BID [facility] Last Admin: 01/09/17 08:33 Dose: 100 mg Ibuprofen (Motrin Tab) 600 mg PO Q6 PRN PRN Reason: Pain, Mild (1-3) Last Admin: 01/09/17 15:46 Dose: 600 mg Levothyroxine Sodium (Synthroid) 50 mcg PO DAILY@0630 [facility] Oxycodone/Acetaminophen (Percocet 5/325 Mg Tab) 1 tab PO Q4 PRN PRN Reason: Pain, moderate (4-7) Stop: 01/12/17 01:24 Oxycodone/Acetaminophen (Percocet 5/325 Mg Tab) 2 tab PO Q4 PRN PRN Reason: Pain, severe (8-10) Stop: 01/12/17 01:24 Sennosides (Senokot Tab) 17.2 mg PO HS [facility] Physical Exam - Constitutional Appears: Non-toxic, No Acute Distress - Head Exam Head Exam: ATRAUMATIC, NORMOCEPHALIC - Eye Exam Eye Exam: EOMI, PERRL - ENT Exam ENT Exam: Mucous Membranes Moist - Neck Exam Neck exam: Positive for: Full Rom. Negative for: Lymphadenopathy - Respiratory Exam Respiratory Exam: Clear to Auscultation Bilateral, NORMAL BREATHING PATTERN - Cardiovascular Exam Cardiovascular Exam: REGULAR RHYTHM, +S1, +S2 - GI/Abdominal Exam GI & Abdominal Exam: Distended (mild ), Normal Bowel Sounds, Soft, Tenderness ( mild diffuse) - Extremities Exam Extremities exam: Positive for: full ROM. Negative for: calf tenderness, pedal edema, tenderness - Back Exam Back exam: absent: CVA tenderness (L), CVA tenderness (R) - Neurological Exam Neurological exam: Alert, CN II-XII Intact, Oriented x3 - Psychiatric Exam Psychiatric exam: Normal Affect, Normal Mood - Skin Skin Exam: Dry, Intact, Warm Results - Vital Signs Recent Vital Signs: Last Vital Signs Temp 98.7 F 01/09/17 00:41 Pulse 86 01/09/17 00:41 Resp 16 01/09/17 00:41 BP 122/84 01/09/17 00:41 Pulse Ox 99 01/09/17 00:41 - Labs Result Diagrams: 01/09/17 00:15 Labs: Laboratory Results - last 24 hr 01/09/17 01/09/17 00:15 00:15 WBC 15.3 H RBC 4.06 Hgb 8.9 L Hct 28.0 L MCV 68.9 L D MCH 22.0 L MCHC 32.0 L RDW 18.2 H Plt Count 278 MPV 9.3 Neut % (Auto) 81.4 H Lymph % (Auto) 12.7 L [place] % (Auto) 5.2 Eos % (Auto) 0.3 Baso % (Auto) 0.4 Neut # 12.4 H Lymph # 1.9 [place] # 0.8 Eos # 0.1 Baso # 0.1 Blood Type O POSITIVE Antibody Screen Negative BBK History Checked Patient has bt Assessment & Plan - Assessment and Plan (Free Text) Assessment: Assessment: 26 yr old , post day # 0 s/p with postitive Lyme titers and PMHx of migraine headaches, [place] Palsy and gestational hypothyroidism. Patient is stable, asymptomatic, has unremarkable Brain MRI and CT head from September 2016. Plan: 1. Positive Lyme Titers -stable, currently asymptomatic, pt reports occasional/intermittent joint pains -Unremarkable MRI Brain and CT head from september 2016 -follow up with outpatient neurology as scheduled -Dr. Mckeon 02/10/17 2. PMHx [place] Palsy -no facial droop or weakness, no other neurological deficits -Unremarkable MRI Brain and CT head from september 2016 -follow up with outpatient neurology as scheduled -Dr. Mckeon 02/10/17 3. Gestational Hypothyroidism -stable, TSH 0.842, FT4 1.06 on 11/03/16 -continue Levothyroxine 50mcg -follow up with PMD as outpatient 4. Asymptomatic Iron Deficiency Anemia -acute on chronic -H/H 8.9/28.0 today -Ferrous Sulfate 325mg PO TID, Colace 100mg PO BID - Date & Time Date: 01/09/17 Time: 03:00
[2017-01-10] MEDS ORDERED: Levothyroxine 50 MCG TAB PO SCH (06:30)
[2017-01-10 08:13] LABS: MEAN CELL VOLUME 69.3 fl (81.0-99.0); MEAN CORPUSCULAR HEMOGLOBIN 21.9 pg (27.0-31.0); MEAN CORPUSCULAR HGB CONC 31.6 g/dL (33.0-37.0); RBC 4.58 Mil/uL (3.80-5.20); RED CELL DISTRIBUTION WIDTH 18.2 % (11.5-14.5); WHITE BLOOD COUNT 12.9 K/uL (4.8-10.8)
--- NOTE | 2017-01-10 11:52 | OBPPN ---
Datetime: 01/10/2017 07:10 PP Pain Prov: Within normal limits PP Nausea Prov: Denies PP Flatus Prov: Yes PP BM Prov: Yes PP Heart Prov: Normal PP Lungs Prov: Normal PP Abdomen/Uterus Prov: Normal PP Lochia Prov: Normal PP Vulva/Perineum Prov: Normal PP CVA Tenderness Prov: Normal PP Extremities Prov: Normal PP Progress Prov: Normal PP Impression Prov: Normal progression PP Plan Prov: Continue present management PP Progress Note Prov: 26 y.o now seen and examined at bedside with presence of a tassel snipper. p t had an unevenful overnight. pt report mild pelvic pain controlled with pain meds. amublating and to lerating PO well. Lochia is similar to menses volume. voiding freely w/ no blood noted. had BM. matt es fever, chills, nausea,vomiting. Hospitalist was counseled on pt. As per hospitalist, due to asymptomatic status of pt, no need for acute MRI. Pt will be followed up for equivocal Lyme serum titers. assessment: 1. 26yo s/p , PPD #1, feeling well. 2. Asymptomatic anemia 3. Moon palsy 4. Positive lyme titers Plan: ibuprofen for pain management ferrous sulfate for anemia f/u with her outpt neurologist Dr Mckeon as scheduled on 02/10/17 for both Hx of Moon palsy and + lyme titers. Pt instructed to follow up with PCP in 1 weeks for further evaluation of equivocal Lyme titers. Pt will be discharged today. Case discussed with on-call attending Dr. Antoinette Osman, PGY1 OB Hospitalist on-call: I saw and examined pt with PGY1. agree with note...JAVIER Vital Signs Provider PP: Reviewed Datetime: 01/09/2017 22:07 PP Breasts Prov: Normal
--- NOTE | 2017-01-10 17:26 | OBDCSUM ---
Datetime: 01/08/2017 15:16 Disch Instr Activity: Normal activity; Bedrest Discharge Instructions, Provider: Routine instructions given Discharge Diagnosis, Provider: Term Delivered Discharge Time: 01/10/2017 15:17 Follow up in weeks, Provider: 6 week Contraception discussed, Prov: Yes Disch Activity Restrictions: No exercising; No sexual activity; Nothing in vagina - [place], [place] luca romero Discharge Comment, Provider: Encourage PNV 1 tab po q/day 3. Ibuprofen 600 mg 1 tab po prn q6 if moderate pain . Ambulatory with caution, nothing per vagina, no heavy lifting, avoid stairs, if excessive bleeding or fever without relief from Tylenol go to ED. f/u with her outpt neurologist Dr Mckeon as scheduled on 02/10/17 for both Hx of Moon palsy and + lyme titers. Pt instructed to follow up with PCP in 1 week for further evaluation of equivocal Lyme titers.
--- NOTE | 2017-01-12 16:38 | OBHP ---
Datetime: 01/09/2017 00:56 IP Adm Impression: Term, intrauterine IP Admit Plan: Admit to unit; Initiate labor protocol Heart - PN: Normal Presentation-Admit: Vertex Contraction Comments Provider: q2-4min Gestation - Est Wks by US: 39 weeks EGA AdmitDate IP: 39.0 Vital Signs Provider: Reviewed; Within Normal Limits IP Chief Complaint: Uterine contractions NICHD Decel Fetus A IP Provider: None Datetime: 01/05/2017 12:27 Admit Comment, IP Provider: This is a 26 y.o with 38.1 weeks GA according to LMP, presenting wi th increased uterine contractions that began at 10:20 AM today, contractions are increasing in intens ity and last for 1 minute. Pt also complains of brownish mucus an houtr ago and scant clear liquid co nel out from vagina. Pt also reports US showed tranverse position 4 days ago. GBS Pt denies fe suzette, headache, nausea, vomiting, vaginal bleeding or dysuria. Medications: Levothyroxine and PNV. NKDA PMHx: Hypothyroidism PSHx: Open [id number] years ago. OBHx: 3 . SHx: No smoking, alcohol or recreational drugs. A_P: 26 y.o presenting with suspected ROM with NO pooled fluid on physical exam. Pt will be o bserved. Pt instructed to return if increased contraction intensity and/or frequency. obh addendum: Pt seen _ examined by me. Agree with above assesment and plan. Pelvic Type - PN: Adequate Extremities - PN: Normal Abdomen - PN: Normal Back - PN: Normal Lungs - PN: Normal Neurologic - PN: Normal HEENT - PN: Normal General - PN: Normal FHR - Baseline A Provider: 140 Membranes, Provider: Intact Comments, ACOG Physical Exam: Internal pelvic: Dilation 1 cm, no fluid pooled. Pool Provider: Negative NICHD Variability Prov Fetus A: Moderate 6-25bpm NICHD Accel Fetus A IP Provider: [id number] FHR Category Provider Fetus A: Category I Dilatation, Provider: 1 Effacement, Provider: thick Station, Provider: -3 Genitourinary Exam: Normal
== END 2017-01-10 15:30 | disposition home or self-care (01) | DRG 373 ==
LOC: H.EROB2 23:29 → H.L&D 01-09 00:02 → H.OB/GYN 01-09 03:00
PROVIDERS: ADMIT Obstetrics & Gynecology; ATTEND Obstetrics & Gynecology
PROC: 10E0XZZ Delivery of Products of Conception, External Approach (ICD-10-PCS; principal; 2017-01-09)
PROC: 10907ZC Drainage of Amniotic Fluid, Therapeutic from Products of Conception, Via Natural or Artificial Opening (ICD-10-PCS; 2017-01-09)
PROC: 4A1HXCZ Monitoring of Products of Conception, Cardiac Rate, External Approach (ICD-10-PCS; 2017-01-09)
DX: O99.284 Endocrine, nutritional and metabolic diseases complicating childbirth (principal); E03.8 Other specified hypothyroidism; O99.02 Anemia complicating childbirth; D50.9 Iron deficiency anemia, unspecified; O99.820 Streptococcus B carrier state complicating pregnancy; O99.52 Diseases of the respiratory system complicating childbirth; J45.909 Unspecified asthma, uncomplicated; Z37.0 Single live birth; Z3A.38 38 weeks gestation of pregnancy; Z86.69 Personal history of other diseases of the nervous system and sense organs

== ENCOUNTER 2017-12-30 10:36 | Emergency (ER) | payer OTHER ==
[2017-12-30 10:40] VITALS: BMI 20.5
[2017-12-30] MEDS ORDERED: Sodium Chloride 0.9% 2,000 ML IV STA (11:12)
[2017-12-30] MEDS ORDERED: cefTRIAXone (Rocephin) 1 gm Inj IVPB ONE (11:12)
--- NOTE | 2017-12-30 11:15 | ED PDOC ---
HPI: General Adult Time Seen by Provider: 12/30/17 11:13 Chief Complaint (Nursing): Abdominal Pain Chief Complaint (Provider): abd pain History Per: Patient (27 y/o female approx 8 weeks gestation here with lower abdominal pain x 5 days associated with fevers/chills yesterday. Notes vomiting/diarrhea and dizziness. Has taken tylenol at 8am. H/o appendectomy/ tonsillectomy in past. Has had care and seen by vice president quality in [place] with ultrasound documenting .) Past Medical History Reviewed: Historical Data, Nursing Documentation, Vital Signs Vital Signs: Last Vital Signs Temp 98.6 F 12/30/17 10:41 Pulse 81 12/30/17 10:41 Resp 16 12/30/17 10:41 BP 108/72 12/30/17 10:41 Pulse Ox 98 12/30/17 17:02 - Medical History PMH: Asthma (no episodes x8 years), Hypothyroidism, Migraine Denies: Kidney Stones, Chronic Kidney Disease - Surgical History Surgical History: Appendectomy, Tonsillectomy - Family History Family History: States: Hypertension - Immunization History Hx Tetanus Toxoid Vaccination: No Hx Influenza Vaccination: No Hx Pneumococcal Vaccination: No - Home Medications Home Medications: Ambulatory Orders Medication Instructions Recorded Levothyroxine [Synthroid] 50 mcg PO DAILY@0630 tab 01/10/17 Albuterol HFA [Ventolin HFA 90 1 puff IH Q4 #1 puff 08/20/17 mcg/actuation (8 g)] Benzocaine/Menthol [Cepacol Sore 1 adrian MM Q2 #30 adrian 08/20/17 Throat] Benzonatate [Tessalon Perles] 100 mg PO TID #30 sgl 08/20/17 Acetaminophen [Acetaminophen Extra 2 tab PO Q6 PRN #24 tablet 12/30/17 Strength] Ondansetron ODT [Zofran ODT] 4 mg PO Q8 PRN #10 odt 12/30/17 - Allergies Allergies/Adverse Reactions: Allergies Allergy/AdvReac Type Severity Reaction Status Date / Time nitrofurantoin Allergy RASH Verified 08/20/17 13:43 [From Macrobid] nitrofurantoin Allergy RASH Verified 08/20/17 13:43 macrocrystalline [From Macrobid] Review of Systems ROS Statement: Except As Marked, All Systems Reviewed And Found Negative Physical Exam - Reviewed Nursing Documentation Reviewed: Yes Vital Signs Reviewed: Yes - Physical Exam Appears: Positive for: Well, Non-toxic, No Acute Distress Head Exam: Positive for: ATRAUMATIC, NORMAL INSPECTION, NORMOCEPHALIC Skin: Positive for: Normal Color, Warm, DRY Eye Exam: Positive for: EOMI, Normal appearance, PERRL ENT: Positive for: Normal ENT Inspection Neck: Positive for: Normal, Painless ROM Cardiovascular/Chest: Positive for: Regular Rate, Rhythm Respiratory: Positive for: CNT, Normal Breath Sounds Gastrointestinal/Abdominal: Positive for: Normal Exam, Soft, Tenderness (ruq tenderness) Back: Positive for: Normal Inspection, R CVA Tenderness Extremity: Positive for: Normal ROM Neurologic/Psych: Positive for: Alert, Oriented - Laboratory Results Result Diagrams: 12/30/17 12:30 12/30/17 12:30 Urine POC: Positive Urine dip results: Positive for: Blood (TRACE). Negative for: Leukocyte Esterase, Nitrate, Ketones, Glucose, Bilirubin - ECG O2 Sat by Pulse Oximetry: 98 - Progress ED Course And Treament: ROCEPHIN 1 GM IV X 1 DOSE FOR CLINICAL SIGNS OF PYELONEPHRITIS NS 1 LITER 500ML PER HOUR ZOFRAN 4 MG ODT US PELVIC IMPRESSION: Single intrauterine gestation with normal cardiac activity with a gestational age by ultrasound 9 weeks 3 days 0 weeks 5 days. Estimated date of delivery by ultrasound is 08/01/2018. Estimated date of delivery by LMP 2018. Gestational age by LMP 6 weeks 6 days. US RUQ: NEGATIVE FOR CHOLECYSTITIS URINALYSIS REVIEWED WNL. URINE CX SENT. PATIENT COMPLAINS OF PERSISTENT HEADACHE/DIZZINESS REGLAN 10 MG IV X 1 DOSE PATIENT NOTES NEAR RESOLUTION OF HEADACHE. Disposition - Clinical Impression Clinical Impression: Hyperemesis affecting , antepartum, Migraine - Patient ED Disposition Is Patient to be Admitted: No - Disposition Referrals: Nick Bazzi MD [Medical Doctor] - Disposition: Routine/Home Disposition Time: 16:50 Condition: FAIR Prescriptions: Acetaminophen [Acetaminophen Extra Strength] 2 tab PO Q6 PRN #24 tablet PRN Reason: Headache Ondansetron ODT [Zofran ODT] 4 mg PO Q8 PRN #10 odt PRN Reason: Nausea/Vomiting Instructions: Nausea and Vomiting of , Migraine Headaches in Adults Forms: [facility] ED School/Work Excuse Print Language: HUNGARIAN
[2017-12-30] MEDS ORDERED: cefTRIAXone (Rocephin) 1 gm Inj ONE (11:57)
--- NOTE | 2017-12-30 12:31 | US ---
HISTORY: Abdominal pain and cramping. 27-year-old female MP 11/12/2017. Estimated gestational age by LMP 6 weeks 6 days. COMPARISON: None for this TECHNIQUE: Transvaginal technique utilized. FINDINGS: UTERUS: Measures 10.3 x 8.9 x 7.8cm. The uterus is . No fibroid or other mass lesion seen. An intrauterine gestational sac is present corresponding to a 9 week 5 day gestation. 5.5 mm Yolk sac is present. 2.4 cm [place]n-rump length embryonic pole with cardiac activity at 164 beats per Min is present. No subchorionic hemorrhage noted Cervix No cervical abnormality identified. Closed at 4.4. No endocervical fluid RIGHT OVARY: Measures 3.0 x 2.9 x 2.0 cm. No solid mass. Normal flow. LEFT OVARY: Measures 3.7 x 2.6 x 1.8 cm. No solid mass. Normal flow. FREE FLUID: There is free fluid present. OTHER FINDINGS: IMPRESSION: Single intrauterine gestation with normal cardiac activity with a gestational age by ultrasound 9 weeks 3 days 0 weeks 5 days. Estimated date of delivery by ultrasound is 08/01/2018. Estimated date of delivery by LMP 08/19/2018. Gestational age by LMP 6 weeks 6 days.
[2017-12-30 12:48] LABS: SQUAMOUS EPITHIAL < 1 /hpf (0-5); URINE BILIRUBIN NEGATIVE (NEGATIVE); URINE BLOOD NEGATIVE (NEGATIVE); URINE CLARITY SLIGHTY-CLOUDY (Clear); URINE COLOR YELLOW (YELLOW); URINE GLUCOSE (UA) NEG (Normal); URINE LEUKOCYTE ESTERASE NEG Leu/uL (Negative); URINE PROTEIN NEGATIVE (NEGATIVE); URINE UROBILINOGEN 0.2-1.0 mg/dL (0.2-1.0)
[2017-12-30 13:02] LABS: BASO % 0.2 % (0.0-2.0); EOS # 0.1 K/uL (0.0-0.7); EOS % 0.9 % (0.0-4.0); HEMOGLOBIN 11.7 g/dL (12.0-16.0); LYMPH # 2.8 K/uL (1.0-4.3); LYMPH % 24.8 % (20.0-40.0); MEAN CELL VOLUME 76.8 fl (81.0-99.0); MEAN CORPUSCULAR HEMOGLOBIN 25.3 pg (27.0-31.0); MEAN PLATELET VOLUME 8.2 fl (7.2-11.7); MONO # 0.7 K/uL (0.0-0.8); MONO % 6.6 % (0.0-10.0); NEUT # 7.5 K/uL (1.8-7.0); NEUT % 67.5 % (50.0-75.0); RBC 4.62 Mil/uL (3.80-5.20); RED CELL DISTRIBUTION WIDTH 16.6 % (11.5-14.5); WHITE BLOOD COUNT 11.1 K/uL (4.8-10.8)
[2017-12-30 13:13] LABS: ALB/GLOB RATIO 1.2 (1.0-2.1); ALBUMIN 4.1 g/dL (3.5-5.0); ALT/SGPT 29 U/L (9-52); AST/SGOT 25 U/L (14-36); BLOOD UREA NITROGEN 5 mg/dl (7-17); CALCIUM 9.5 mg/dL (8.4-10.2); GFR AFRICAN-AMERICAN > 60; GFR NON-AFRICAN AMERICAN > 60; LIPASE 157 U/L (23-300)
[2017-12-30 17:29] VITALS: BP 118/68; PULSE 75; RESP 18; TEMP 97.8; O2SAT 100
--- NOTE | 2017-12-30 17:58 | US ---
HISTORY: ABDOMINAL PAIN RUQ COMPARISON: Comparison made with prior abdominal ultrasound 01/20/2016 TECHNIQUE: Sonographic evaluation of the right upper quadrant of the abdomen. FINDINGS: LIVER: Measures 17.5 cm in length. Normal echogenicity of the liver parenchyma. No mass. No intrahepatic bile duct dilatation. GALLBLADDER: Unremarkable. No gallstones. COMMON BILE DUCT: Measures 3.7 mm. No stones. No dilatation. PANCREAS: Unremarkable as visualized. No mass. No ductal dilatation. RIGHT KIDNEY: Measures 12.4 x 5.8 x 4.6 cm in length. Normal echogenicity. No calculus, mass, or hydronephrosis. AORTA: No aneurysmal dilatation. IVC: Unremarkable. OTHER FINDINGS: None . IMPRESSION: No acute intra abdominal pathology
== END 2017-12-30 17:28 | disposition home or self-care (01) ==
LOC: H.ER 10:36
DX: O21.0 Mild hyperemesis gravidarum (principal); O26.891 Other specified pregnancy related conditions, first trimester; G43.909 Migraine, unspecified, not intractable, without status migrainosus; J45.909 Unspecified asthma, uncomplicated; O99.511 Diseases of the respiratory system complicating pregnancy, first trimester; O99.89 Other specified diseases and conditions complicating pregnancy, childbirth and the puerperium; Z3A.09 9 weeks gestation of pregnancy; Z90.49 Acquired absence of other specified parts of digestive tract; O99.281 Endocrine, nutritional and metabolic diseases complicating pregnancy, first trimester; E03.9 Hypothyroidism, unspecified
CPT/HCPCS: 76705; 76817; 80053; 81003; 81025; 83690; 84702; 85025; 87086; 96374; 99284; J0696; J2765; J7030

== ENCOUNTER 2018-03-01 20:22 | Emergency (ER) | payer OTHER ==
[2018-03-01 20:22] VITALS: BMI 20.5
[2018-03-01 20:34] VITALS: TEMP 98.7
--- NOTE | 2018-03-01 21:03 | ED PDOC ---
HPI: Female Pain Time Seen by Provider: 03/01/18 20:35 Chief Complaint (Nursing): Female Genitourinary Chief Complaint (Provider): : pain History Per: Patient History/Exam Limitations: no limitations Onset/Duration Of Symptoms: Days (2) Current Symptoms Are (Timing): Still Present Quality Of Discomfort: "Pain" Associated Symptoms: Urinary Symptoms Additional Complaint(s): 27 y/o female, approximately 17 weeks gestation, presents for evaluation of lower pelvic pain x 2 days. Associated increased urine frequency. Patient states yesterday she noticed clear fluid from vagina, followed by white/clear mucous. Denies fever, headache, nausea/vomiting, chest pain, shortness of breath, palpitations, changes in bowel movements, vaginal bleeding, dysuria. Abnormal Vaginal Bleeding: No Last Menstral Period: NA : 5 Para: 4 Miscarriage: 0 Past Medical History Reviewed: Historical Data, Nursing Documentation, Vital Signs Vital Signs: Last Vital Signs Temp 98.7 F 03/01/18 20:31 Pulse 97 H 03/01/18 20:31 Resp 16 03/01/18 20:31 BP 128/77 03/01/18 20:31 Pulse Ox 99 03/01/18 20:31 - Medical History PMH: Asthma (no episodes x8 years), Hypothyroidism, Migraine Denies: Kidney Stones, Chronic Kidney Disease - Surgical History Surgical History: Appendectomy, Tonsillectomy - Family History Family History: States: Hypertension - Immunization History Hx Tetanus Toxoid Vaccination: No Hx Influenza Vaccination: No Hx Pneumococcal Vaccination: No - Home Medications Home Medications: Ambulatory Orders Medication Instructions Recorded Levothyroxine [Synthroid] 50 mcg PO DAILY@0630 tab 01/10/17 Albuterol HFA [Ventolin HFA 90 1 puff IH Q4 #1 puff 08/20/17 mcg/actuation (8 g)] Benzocaine/Menthol [Cepacol Sore 1 adrian MM Q2 #30 adrian 08/20/17 Throat] Benzonatate [Tessalon Perles] 100 mg PO TID #30 sgl 08/20/17 Acetaminophen [Acetaminophen Extra 2 tab PO Q6 PRN #24 tablet 12/30/17 Strength] Ondansetron ODT [Zofran ODT] 4 mg PO Q8 PRN #10 odt 12/30/17 - Allergies Allergies/Adverse Reactions: Allergies Allergy/AdvReac Type Severity Reaction Status Date / Time nitrofurantoin Allergy RASH Verified 08/20/17 13:43 [From Macrobid] nitrofurantoin Allergy RASH Verified 08/20/17 13:43 macrocrystalline [From Macrobid] Review of Systems ROS Statement: Except As Marked, All Systems Reviewed And Found Negative Genitourinary Female: Positive for: Vaginal Discharge, Pelvic Pain Physical Exam - Reviewed Nursing Documentation Reviewed: Yes Vital Signs Reviewed: Yes - Physical Exam Appears: Positive for: Non-toxic, No Acute Distress Head Exam: Positive for: NORMAL INSPECTION, NORMOCEPHALIC Skin: Positive for: Normal Color Eye Exam: Positive for: Normal appearance ENT: Positive for: Normal ENT Inspection Cardiovascular/Chest: Positive for: Regular Rate, Rhythm Respiratory: Positive for: Normal Breath Sounds Gastrointestinal/Abdominal: Positive for: Bowel Sounds, Soft, Tenderness ( diffuse lower abdominal discomfort). Negative for: Distended Pelvic Exam: Positive for: External Exam Normal, No Cerv. Motion Tender, Other ( exam direct of real estate Domenica Garibay RN). Negative for: Active Bleeding, Cervicitis, Discharge Back: Positive for: Normal Inspection Extremity: Positive for: Normal ROM Neurologic/Psych: Positive for: Alert, Oriented (x3) - Laboratory Results Result Diagrams: 03/01/18 21:11 03/01/18 21:11 - ECG O2 Sat by Pulse Oximetry: 99 - Progress ED Course And Treament: labs, urine, ob u/s EXAM: US Uterus, Limited CLINICAL HISTORY: 27 years old, female; Pain; complicated by abdominal or pelvic pain; Lower; Second trimester; Gestational age or lmp: 11/12/2017; ; Additional info: Approx 17 wks; Pain, discharge TECHNIQUE: Real-time ultrasound of the maternal uterus (limited) with image documentation. COMPARISON: No relevant prior studies available. FINDINGS: Fetus: There is a single living intrauterine . Gestational age: Measurements correlate with a mean gestational age of 18 weeks 3 days. Position: Presentation is breech. Heart rate: Embryonic/ cardiac activity is identified, at a rate of 137 beats per minute. Placenta: The placenta is located posteriorly and is normal. Cervix: The cervix is closed measuring 4.2 cm. IMPRESSION: Live intrauterine , with no evidence of early complications. 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
[2018-03-01 21:14] LABS: BASO % 0.3 % (0.0-2.0); EOS # 0.1 K/uL (0.0-0.7); EOS % 0.7 % (0.0-4.0); HEMOGLOBIN 9.9 g/dL (12.0-16.0); LYMPH # 2.8 K/uL (1.0-4.3); LYMPH % 23.2 % (20.0-40.0); MEAN CORPUSCULAR HEMOGLOBIN 25.3 pg (27.0-31.0); MEAN CORPUSCULAR HGB CONC 32.9 g/dL (33.0-37.0); MEAN PLATELET VOLUME 8.1 fl (7.2-11.7); MONO # 0.6 K/uL (0.0-0.8); NEUT # 8.6 K/uL (1.8-7.0); NEUT % 70.8 % (50.0-75.0); RBC 3.92 Mil/uL (3.80-5.20); RED CELL DISTRIBUTION WIDTH 15.9 % (11.5-14.5); WHITE BLOOD COUNT 12.1 K/uL (4.8-10.8)
[2018-03-01 21:27] LABS: ALB/GLOB RATIO 1.3 (1.0-2.1); ALBUMIN 3.8 g/dL (3.5-5.0); ALT/SGPT 17 U/L (9-52); AST/SGOT 22 U/L (14-36); BLOOD UREA NITROGEN 9 mg/dl (7-17); CALCIUM 9.4 mg/dL (8.4-10.2); GFR NON-AFRICAN AMERICAN > 60
[2018-03-02 00:19] LABS: SQUAMOUS EPITHIAL 1 /hpf (0-5); URINE BILIRUBIN NEGATIVE (NEGATIVE); URINE BLOOD NEGATIVE (NEGATIVE); URINE CLARITY SLIGHTY-CLOUDY (Clear); URINE COLOR YELLOW (YELLOW); URINE GLUCOSE (UA) NEG (Normal); URINE LEUKOCYTE ESTERASE NEG Leu/uL (Negative); URINE PROTEIN NEGATIVE (NEGATIVE)
[2018-03-02 00:47] VITALS: BP 112/64; PULSE 65; RESP 20; O2SAT 100
--- NOTE | 2018-03-02 09:38 | US ---
Date of service: 03/01/2018 PROCEDURE: OB Pelvic Ultrasound HISTORY: approx 17 wks; pain, discharge LMP: 11/12/2017 COMPARISON: None available. FINDINGS: UTERUS: Single live intrauterine fetus in breech presentation. Heart rate: 137 bpm. BPD: 4.12 cm corresponding to 18 weeks and 3 days of gestational age. HC: 15.1 cm corresponding to 18 weeks and 1 day of gestational age. AC: 13.7 cm corresponding to 19 weeks and 1 day of gestational age. FL: 2.56 cm corresponding to 17 weeks and 5 days of gestational age. age (Ultrasound estimated): 18 weeks and 3 days Nancy-gestational hemorrhage: None. Date of delivery (Ultrasound estimated) : 07/30/2018 Placenta is posterior. CERVIX: Measures 4.2 cm. Long and closed. No cervical abnormality seen. RIGHT OVARY: Not visualized. LEFT OVARY: Not visualized. FREE FLUID: None. OTHER FINDINGS: None. IMPRESSION: Single live intrauterine fetus in breech presentation with mean gestational age of 18 weeks and 3. Cervix is closed. The estimated date of delivery by ultrasound is 07/30/2018. There is a discrepancy with the clinical dates by 3 weeks. Clinical follow-up is advised. Please note this is a limited OB ultrasound performed on an emergent basis. Dedicated anatomic survey is advised. A preliminary report was provided by [facility].
== END 2018-03-02 00:47 | disposition home or self-care (01) ==
LOC: H.ER 20:22
DX: O26.92 Pregnancy related conditions, unspecified, second trimester (principal); R10.2 Pelvic and perineal pain; Z3A.17 17 weeks gestation of pregnancy

== ENCOUNTER 2018-03-07 11:12 | Emergency (ER) | payer OTHER ==
[2018-03-07 11:17] VITALS: BMI 21.1
[2018-03-07 11:18] VITALS: TEMP 98.3
[2018-03-07] MEDS ORDERED: Sodium Chloride 0.9% 1,000 ML IV STA (11:35)
--- NOTE | 2018-03-07 11:53 | ED PDOC ---
HPI: Abdomen Time Seen by Provider: 03/07/18 11:30 Chief Complaint (Nursing): Abdominal Pain Chief Complaint (Provider): Abdominal Pain History Per: Patient History/Exam Limitations: no limitations Onset/Duration Of Symptoms: Days (x 1) Location Of Pain/Discomfort: Other (pelvic region) Quality Of Discomfort: "Pain" Additional Complaint(s): 27 year old () female presents to the ED with lower abdominal pain and nausea beginning yesterday. Patient reports the urge to urinate and defecate but is unable to since this morning. Also complains of back pain. She is ~18 weeks , sees an OBGYN in [facility] and had a normal US 2 weeks ago. Patient was however told that the placenta is low lying. Takes no medications. Denies vomiting, vaginal discharge and bleeding. PMD: Dr. Cheryl Cornejo Abnormal Vaginal Bleeding: No : 5 Para: 4 Past Medical History Reviewed: Historical Data, Nursing Documentation, Vital Signs Vital Signs: Last Vital Signs Temp 98.3 F 03/07/18 11:17 Pulse 93 H 03/07/18 11:17 Resp 20 03/07/18 11:17 BP 122/75 03/07/18 11:17 Pulse Ox 100 03/07/18 12:11 - Medical History PMH: Asthma (no episodes x8 years), Hypothyroidism, Migraine Denies: Kidney Stones, Chronic Kidney Disease - Surgical History Surgical History: Appendectomy, Tonsillectomy - Family History Family History: States: Hypertension - Immunization History Hx Tetanus Toxoid Vaccination: No Hx Influenza Vaccination: No Hx Pneumococcal Vaccination: No - Home Medications Home Medications: Ambulatory Orders Medication Instructions Recorded Levothyroxine [Synthroid] 50 mcg PO DAILY@0630 tab 01/10/17 Albuterol HFA [Ventolin HFA 90 1 puff IH Q4 #1 puff 08/20/17 mcg/actuation (8 g)] Benzocaine/Menthol [Cepacol Sore 1 adrian MM Q2 #30 adrian 08/20/17 Throat] Benzonatate [Tessalon Perles] 100 mg PO TID #30 sgl 08/20/17 Acetaminophen [Acetaminophen Extra 2 tab PO Q6 PRN #24 tablet 12/30/17 Strength] Ondansetron ODT [Zofran ODT] 4 mg PO Q8 PRN #10 odt 12/30/17 AMPicillin [Ampicillin] 500 mg PO QID #28 cap 03/07/18 Acetaminophen [Tylenol 325mg tab] 650 mg PO Q6H PRN #50 tab 03/07/18 - Allergies Allergies/Adverse Reactions: Allergies Allergy/AdvReac Type Severity Reaction Status Date / Time nitrofurantoin Allergy RASH Verified 08/20/17 13:43 [From Macrobid] nitrofurantoin Allergy RASH Verified 08/20/17 13:43 macrocrystalline [From Macrobid] Review of Systems ROS Statement: Except As Marked, All Systems Reviewed And Found Negative Constitutional: Negative for: Fever Gastrointestinal: Positive for: Nausea, Abdominal Pain (lower). Negative for: Vomiting Genitourinary Female: Negative for: Dysuria, Frequency, Incontinence, Hematuria , Vaginal Discharge, Vaginal Bleeding Physical Exam - Reviewed Nursing Documentation Reviewed: Yes Vital Signs Reviewed: Yes - Physical Exam Appears: Positive for: Non-toxic, Uncomfortable (mild discomfort; is holding abdomen in pain) Head Exam: Positive for: ATRAUMATIC, NORMAL INSPECTION, NORMOCEPHALIC Skin: Positive for: Normal Color, Warm, Dry Eye Exam: Positive for: EOMI, Normal appearance, PERRL Neck: Positive for: Normal, Painless ROM, Supple Cardiovascular/Chest: Positive for: Regular Rate, Rhythm. Negative for: Murmur Respiratory: Positive for: Normal Breath Sounds. Negative for: Wheezing, Respiratory Distress Gastrointestinal/Abdominal: Positive for: Soft, Tenderness (tenderness to palpation in both lower quadrants and suprapubic areas) Back: Positive for: L CVA Tenderness, R CVA Tenderness Extremity: Positive for: Normal ROM. Negative for: Deformity Neurologic/Psych: Positive for: Alert (and awake), Oriented (x 3). Negative for : Motor/Sensory Deficits - Laboratory Results Result Diagrams: 03/07/18 12:11 03/07/18 12:11 - ECG O2 Sat by Pulse Oximetry: 100 (RA) Pulse Ox Interpretation: Normal Medical Decision Making Medical Decision Makin:35 Impression: lower abdominal pain, UTI, threatened Initial Plan: --CMP --CBC --U preg --U dip --Morphine 2 mg IVP --NS IV --Zofran Inj 4 mg IVP --UA --Pelvis US Scribe Attestation: Documented by Jodie Wise, acting as a scribe for Peyton Owens MD Provider Scribe Attestation: All medical record entries made by the Scribe were at my direction and personally dictated by me. I have reviewed the chart and agree that the record accurately reflects my personal performance of the history, physical exam, medical decision making, and the department course for this patient. I have also personally directed, reviewed, and agree with the discharge instructions and disposition. Disposition - Clinical Impression Clinical Impression: Abdominal pain during , UTI (urinary tract infection) during - Patient ED Disposition Is Patient to be Admitted: No Doctor Will See Patient In The: Office Counseled Patient/Family Regarding: Diagnosis, Need For Followup, Rx Given - Disposition [facility] [Outside] Disposition: Routine/Home Disposition Time: 14:16 Condition: STABLE Prescriptions: Acetaminophen [Tylenol 325mg tab] 650 mg PO Q6H PRN #50 tab PRN Reason: Pain, Mild (1-3) AMPicillin [Ampicillin] 500 mg PO QID #28 cap Instructions: Urinary Tract Infection, Adult (DC), Activity During Forms: [employer] (Thai), [facility] ED School/Work Excuse Print Language: ROMANIAN - POA Present On Arrival: None
[2018-03-07 12:15] LABS: BASO % 0.3 % (0.0-2.0); EOS # 0.1 K/uL (0.0-0.7); EOS % 0.9 % (0.0-4.0); HEMOGLOBIN 10.2 g/dL (12.0-16.0); LYMPH # 1.8 K/uL (1.0-4.3); MEAN CELL VOLUME 76.8 fl (81.0-99.0); MEAN CORPUSCULAR HEMOGLOBIN 25.9 pg (27.0-31.0); MEAN CORPUSCULAR HGB CONC 33.7 g/dL (33.0-37.0); MEAN PLATELET VOLUME 8.1 fl (7.2-11.7); MONO # 0.5 K/uL (0.0-0.8); MONO % 4.6 % (0.0-10.0); NEUT # 8.2 K/uL (1.8-7.0); NEUT % 77.2 % (50.0-75.0); NRBC % 0.1 % (0.0-0.0); RBC 3.95 Mil/uL (3.80-5.20); RED CELL DISTRIBUTION WIDTH 15.6 % (11.5-14.5); WHITE BLOOD COUNT 10.6 K/uL (4.8-10.8)
[2018-03-07 13:09] LABS: ALB/GLOB RATIO 1.3 (1.0-2.1); ALBUMIN 3.7 g/dL (3.5-5.0); ALT/SGPT 24 U/L (9-52); AST/SGOT 22 U/L (14-36); BLOOD UREA NITROGEN 10 mg/dl (7-17); CALCIUM 8.9 mg/dL (8.4-10.2); GFR NON-AFRICAN AMERICAN > 60
[2018-03-07 13:11] LABS: SQUAMOUS EPITHIAL 12 /hpf (0-5); URINE BACTERIA RARE (<OCC); URINE BILIRUBIN NEGATIVE (NEGATIVE); URINE BLOOD NEGATIVE (NEGATIVE); URINE CLARITY SLIGHTY-CLOUDY (Clear); URINE COLOR YELLOW (YELLOW); URINE GLUCOSE (UA) NEG (Normal); URINE LEUKOCYTE ESTERASE SMALL Leu/uL (Negative); URINE PROTEIN NEGATIVE (NEGATIVE)
[2018-03-07 14:29] VITALS: BP 116/65; PULSE 67; RESP 19; O2SAT 98
--- NOTE | 2018-03-07 15:41 | US ---
Date of service: 03/07/2018 PROCEDURE: HISTORY: acute pelvic pain, 18 week ; no bleeding COMPARISON: TECHNIQUE: FINDINGS: There is a single live intrauterine in the variable presentation. The placenta is posterior and low-lying, possibly placenta previa. . biometric measurements correspond to roughly 19 weeks gestational age. anatomic survey not performed. . Recommend followup the 2nd trimester. IMPRESSION: As above. Possible placenta previa or low-lying placenta posteriorly.
== END 2018-03-07 14:35 | disposition home or self-care (01) ==
LOC: H.ER 11:12
DX: O23.42 Unspecified infection of urinary tract in pregnancy, second trimester (principal); O99.282 Endocrine, nutritional and metabolic diseases complicating pregnancy, second trimester
CPT/HCPCS: 76815; 80053; 81003; 81025; 85025; 96361; 96374; 96375; 99285; J2270; J2405; J7030

== ENCOUNTER 2018-04-14 14:09 | Emergency (ER) | payer OTHER ==
[2018-04-14 14:25] VITALS: BMI 22.3
[2018-04-14 16:18] LABS: SQUAMOUS EPITHIAL 1 /hpf (0-5); URINE BILIRUBIN NEGATIVE (NEGATIVE); URINE BLOOD NEGATIVE (NEGATIVE); URINE CLARITY CLEAR (Clear); URINE COLOR STRAW (YELLOW); URINE GLUCOSE (UA) NEG (Normal); URINE LEUKOCYTE ESTERASE NEG Leu/uL (Negative); URINE PROTEIN NEGATIVE (NEGATIVE); URINE UROBILINOGEN 0.2-1.0 mg/dL (0.2-1.0)
--- NOTE | 2018-04-14 18:47 | OBHP ---
Datetime: 04/14/2018 15:49 IP Adm Impression: , intrauterine IP Chief Complaint Other: nausea and vomiting IP Admit Plan: Observation/Evaluation Admit Comment, IP Provider: 27 yo with IUP @ 24.6 based on CHASTITY of 07/29/18 presents to OB ED bec ause of nausea and vomiting since Thursday. She reports that she has not tolerated PO intake since and states the nausea and vomiting is associated with dizziness and she states fever of 100.1 via thermometer at home yesterday. Denies vaginal bleeding, contractions, and loss of fluid. She stat es that she has good movement. Denies diarrhea, dysuria, chest pain, and shortness of breath. ROS: Negative except for above. OBhx: follows with Dr. Cheryl Cornejo; 4 - no complications PMHX: Asthma, migraines- luong's palsy many years ago, hypothyroidism Family Hx: mom with brain tumor that was removed 8 years ago, "Heart issues", Epilepsy and pre-wilver betes Social: Denies alcohol use, previous smoking history and illicit drug use. Medications: Levothyroxine 75mcg daily; PNV daily Allergies: Macrobid- Rash, anaphylaxis according to patient Surgical history: Appendectomy 14 years ago; Adenoidectomy at the age of 7. Labs: Not provided. Physical exam: No acute distress. Vitally stable, afebrile. Heart: S1 and S2 appreciated. No murmurs, gallops or rubs. Lungs: Clear air entry bilaterally. Abdomen: Soft, generalized tender to palpation upper abdomen. No CVA tenderness. FHT: Doppler 145 bpm Assessment:27 yo with IUP @ 24.6 based on CHASTITY of 07/29/18 presents to OB ED because of nausea and vomiting, is [place] stable and afebrile. Plan: - Monitor vital signs - F/u U/A - Zofran 8mg ODT 1700: U/A: negative; Patient reports feeling better and less nausea. Patient will be given PO tria l. Case Discussed with Dr. Duran and Dr. Mckay Ramirez-Fariha Calderon, PGY-1 Family Medicine The patient was seen with the resident I agree with the note Pelvic Type - PN: Not Done Extremities - PN: Normal Abdomen - PN: Normal Back - PN: Normal Breast - PN: Not Done Lungs - PN: Normal Heart - PN: Normal Thyroid - PN: Not Done Neurologic - PN: Not Done HEENT - PN: Not Done General - PN: Normal FHR - Baseline A Provider: 145 on doppler Vital Signs Provider: Reviewed; Within Normal Limits IP Chief Complaint: Maternal discomfort; Other Genitourinary Exam: Normal DTRs - PN: Not Done
[2018-04-14 22:15] VITALS: BP 103/54; PULSE 78; RESP 16; TEMP 98.4; O2SAT 100
== END 2018-04-14 18:14 | disposition home or self-care (01) ==
LOC: H.EROB2 14:09
DX: O21.0 Mild hyperemesis gravidarum (principal); O26.92 Pregnancy related conditions, unspecified, second trimester; R42 Dizziness and giddiness; Z3A.24 24 weeks gestation of pregnancy

== ENCOUNTER 2018-05-24 12:55 | Emergency (ER) | payer OTHER ==
[2018-05-24] MEDS ORDERED: Lactated Ringer's 1,000 ML IV ONE ×2 (13:35→17:03)
--- NOTE | 2018-05-24 16:25 | US ---
Date of service: 05/24/2018 HISTORY: check cervical length COMPARISON: None available. TECHNIQUE: Limited transvaginal ultrasound was performed to evaluate the cervical length alone. Multiple images have been submitted in multiple projections projections. FINDINGS: Transvaginal ultrasonography reveals intrauterine gestation in vertex lie with heart rate of 127 beats per minute. Cervical length measures 4.7 cm with a closed internal os. No gross cervical mass identified overall. OTHER FINDINGS: None. IMPRESSION: Cervix measurement as discussed above. Closed internal os. No cervical lesion appreciable.
[2018-05-24] MEDS ORDERED: Lactated Ringer's 1,000 ML IV SCH (19:15)
--- NOTE | 2018-05-25 00:06 | OBHP ---
Datetime: 05/24/2018 13:56 IP Adm Impression: , intrauterine IP Admit Plan: Observation/Evaluation; Discharge home Admit Comment, IP Provider: 27 y/o @ 31.1 wks w/CHASTITY is 07/25/2017, LMP 10/18/2017, c/o lower abdo betito pain since 3pm yesterday while at work. Pain has continued since then. Last FM was yesterday. D enies vb or loss of fluid. Denies f/c/n/v/, chest discomfort or difficulty breathing. OBGYNhx: x 4, 2009, 2012, 2013, 2016 PMH: anemia, hyperthyroidism Meds; iron pills, levothyroxine, PNV Allergies: macrobid-rash Surghx: appendectomy-2004 Famhx: mom-DM, HTN father- cancer of unknown type Sochx:denies cigarette, eToH use ROS: 12 points reviewed and neg unless otherwise mentioned in HPI Gen: grimacing noted Cardio: s1s2, RRR Lungs: cta b/l Abd: Gravid, BS +, nontender Pelvic: closed _ thick @151pm A/P: 27 y/o @ 31.1 wks w/CHASTITY is 07/25/2017, LMP 10/18/2017, c/o lower abdominal pain -IV fluids -Continue FHR monitoring -Transvaginal ultrasound to measure cervical length; if wnl, DC home Patient seen and examined with Dr. Stephanie Higginbotham, , PGY-1 OB Hospitalist Addendum: Pt seen and examined by me. Agree w/ above. 27 yo at 31+1 wks c/ o lower abdominal pain that started around 3 pm yesterday. 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 VE closed/ thick at 1351. FHT reactive. IVF given. TV u/s cervical length 4.7 cm and a closed internal os. With IV hydration, pt felt better and ctxns became occasional. VE unchanged a t 2330. Pt told to PO hydrate and rest. Pt given a note for work to not return to her job until fur ther notice. Pt discharged home to f/u w/ new doc, Dr. Curry on Thu., 05/26/2018. (ES) Extremities - PN: Normal Abdomen - PN: Normal Lungs - PN: Normal Heart - PN: Normal General - PN: Normal FHR - Baseline A Provider: 135 Membranes, Provider: Intact Gestation - Est Wks by US: 31.1 Pool Provider: Negative EGA AdmitDate IP: 30.4 Vital Signs Provider: Reviewed; Within Normal Limits IP Chief Complaint: Maternal discomfort NICHD Variability Prov Fetus A: Moderate 6-25bpm NICHD Accel Fetus A IP Provider: 15X15 FHR Category Provider Fetus A: Category I NICHD Decel Fetus A IP Provider: None Dilatation, Provider: 0 Effacement, Provider: 0 Station, Provider: -3 Datetime: 04/14/2018 15:49 IP Hx Assessment: No Care
[2018-05-25 00:20] VITALS: BMI 22.6
[2018-05-25 00:53] VITALS: TEMP 98.2
[2018-05-25 01:08] VITALS: RESP 18
[2018-05-25 06:22] VITALS: BP 104/59; PULSE 89; O2SAT 100
== END 2018-05-25 00:15 | disposition home or self-care (01) ==
LOC: H.EROB2 12:55
DX: O26.93 Pregnancy related conditions, unspecified, third trimester (principal); R10.2 Pelvic and perineal pain; Z3A.31 31 weeks gestation of pregnancy
CPT/HCPCS: 76817; 96360; 96361; 99284; J7120

== ENCOUNTER 2018-06-23 12:04 | Emergency (ER) | payer OTHER ==
[2018-06-23 17:31] VITALS: BP 108/64; PULSE 85; RESP 18; TEMP 98.5; O2SAT 100
--- NOTE | 2018-06-23 17:37 | OBHP ---
Datetime: 06/23/2018 13:20 IP Adm Impression: , intrauterine IP Chief Complaint Other: Pelvic pain IP Admit Plan: Discharge home Admit Comment, IP Provider: HPI: Argelia is a 27 year old at 34.6 here for complaints of lower ab dominal/pelvic pain. She was sent from her provider's office today to rule out labor. Descri bes the pain as constant, lower pelvic pressure and heaviness. Over the last 2 days she has also felt very few contractions, which worried her since she did not experience many contractions with her las t 4 deliveries. Denies LOF or vaginal bleeding. Good movement. ROS: as per HPI, otherwise full review of systems is negative Pregnany History 4 previous NSVDs at term, no complications PMH Denies PSH Denies Medications PNV Allergies Macrobid - rash Social Denies tobacco, alcohol or drug use during the Family History Not significant OBJECTIVE See exam section labs: unavailable ASSESSMENT/PLAN: 27 year old at 35.6 here for pelvic pain. Her pain is more consistent with p elvic pressure/pubic symphysis pain than labopr. She had few contractions while here in triag e and they were not painful. Her risk of labor currently is low so no cervical exam was perfo rmed. Currently she is safe for discharhe home with return precautions. Her next appointment is in 2 weeks. Her NST was reactive with no concerning findings. Patient was in agreement with the d ischarge plan and all questions were answered. Purnima Duran MD OB Fellow She was seen with the resident I agree with the note Abdomen - PN: Normal Lungs - PN: Normal Heart - PN: Normal HEENT - PN: Normal General - PN: Normal IP Fetus A Comments: Reactive NST FHR - Baseline A Provider: 120 Vital Signs Provider: Reviewed; Within Normal Limits NICHD Variability Prov Fetus A: Moderate 6-25bpm NICHD Accel Fetus A IP Provider: [id number] NICHD Decel Fetus A IP Provider: None Datetime: 05/24/2018 13:56 EGA AdmitDate IP: 30.4
== END 2018-06-23 13:20 | disposition home or self-care (01) ==
LOC: H.EROB2 12:04
DX: O26.93 Pregnancy related conditions, unspecified, third trimester (principal); R10.2 Pelvic and perineal pain; Z3A.35 35 weeks gestation of pregnancy

== ENCOUNTER 2018-07-09 19:52 | Emergency (ER) | payer OTHER ==
--- NOTE | 2018-07-09 20:51 | OBDCSUM ---
Datetime: 07/09/2018 20:38 Discharged to, Provider: Home Follow up at, Provider: Dr. Curry Disch Instr Activity: Normal activity Disch Instr Diet: Regular Discharge Diagnosis, Provider: False Labor - Undelivered Discharge Time: 07/09/2018 20:38 Follow up in weeks, Provider: 07/14/2018 Disch Referrals: None
--- NOTE | 2018-07-09 20:51 | OBHP ---
Datetime: 07/09/2018 20:00 IP Adm Impression: Term, intrauterine IP Admit Plan: Observation/Evaluation; Discharge home Admit Comment, IP Provider: 27 y/o female @ 37.1 wk GA reports feeling vaginal fluid loss ye sterday at 4 pm as well as abdominal pain. She endorses having nausea, no vomiting. She denies vagina l bleed, dysurea/other urinary sx. She endorses movement. She was last sexually active 2 days a go. OB: Dr. Curry OBGYNhx: x , 2009, 2012, 2013, 2016 PMH: anemia, hyperthyroidism Meds; iron pills, levothyroxine, PNV Allergies: macrobid-rash Surghx: appendectomy and tonsillectomy Famhx: mom-DM, HTN father- cancer of unknown type Sochx:denies cigarette, eToH use ROS negative except per HPI Gen: patient sitting comfortably in bed Cardio: s1s2 present, RRR Lungs: normal respiratory effort, cta b/l Abd: Gravid, BS +, nontender Cervical exam (chaperoned by Dr. Brown): cervix closed Assessment and Plan 27 y/o @ 37.1 wks IUP w/ possible ROM Nitrazine negative, speculum exam: no pooling NST reactive [place] shows no contractions Patient stable for discharge to home w/ ER precautions advised Case discussed w/ Dr. Stephanie Frederick md, pgyi OB Hospitalist Addendum: Pt seen and examined by me. Agree w/ above. 27 yo aat 37+1 wks w/ c/o LOF yesterday. On exam, pt appears confortable. Spec: light white d/c, no pool, nitrazine n eg. VE closed/ long/ high. NST reactive. Pt discharged home w/ labor precautions. Pt has a f/u ap point w/ Dr. Curyr on 07/14/2018. (ES) Pelvic Type - PN: Adequate Extremities - PN: Normal Abdomen - PN: Normal Back - PN: Not Done Breast - PN: Not Done Heart - PN: Normal Thyroid - PN: Not Done Neurologic - PN: Not Done HEENT - PN: Not Done General - PN: Normal FHR - Baseline A Provider: 145 Gestation - Est Wks by US: 37.1 Pool Provider: Negative Nitrazine Provider: Negative IP Hx Assessment: The History has been Reviewed and is Current EGA AdmitDate IP: 37.1 Vital Signs Provider: Reviewed; Within Normal Limits IP Chief Complaint: Suspected ruptured membranes NICHD Variability Prov Fetus A: Moderate 6-25bpm NICHD Accel Fetus A IP Provider: 15X15 NICHD Decel Fetus A IP Provider: None Dilatation, Provider: 0 Genitourinary Exam: Normal DTRs - PN: Not Done
[2018-07-10 01:42] VITALS: BP 103/65; PULSE 102; TEMP 98.1
== END 2018-07-09 20:55 | disposition home or self-care (01) ==
LOC: H.EROB2 19:52
DX: O26.93 Pregnancy related conditions, unspecified, third trimester (principal); R10.2 Pelvic and perineal pain; O34.63 Maternal care for abnormality of vagina, third trimester; N89.8 Other specified noninflammatory disorders of vagina; O47.1 False labor at or after 37 completed weeks of gestation; Z3A.38 38 weeks gestation of pregnancy

== ENCOUNTER 2018-07-18 13:53 | Emergency (ER) | payer OTHER ==
[2018-07-18 14:51] VITALS: BMI 24.7
--- NOTE | 2018-07-20 11:33 | OBHP ---
Datetime: 07/18/2018 14:39 IP Adm Impression: Term, intrauterine ; No Active Labor IP Admit Plan: Observation/Evaluation; Discharge home Admit Comment, IP Provider: 28 y/o female with IUP at 38+3 wk GA presents to [facility] w/ c/o low er back pain and lower pelvic pain. She states that she passed a mucous plug on Thursday ( 2 days ago) . She denies vaginal bleeding, and loss of fluid per the vagina. She endorses movement. Patient reports she has been suffering from nausea and vomiting since yesterday. Denies sick contacts at [facility] and fevers. She denies headaches, changes in vision, CP, SOB, and dysuria. OB: [facility] - Dr. Curry X4: 10/28/09 - 8lbs; 03/12/13 : 8lbs 5 oz ; 05/10/14: 8 lbs 10 oz ; 01/09/17 : 8lbs 8 oz Pmhx: Hypothyroidism HomeRx: PNV daily, Ferrous sulfate daily; Levothyroxine 75 mcg daily. Famhx: Mother with Brain tumor, seizures, HTN and heart disease. Social hx: Denies smoking history, alcohol use and illicit drug use. SurgHx: Denies Allergies: Macrobid- causes a rash. Labs: GBS sent 07/09/17- pending , HIV neg, RPR neg, Rubella immune, Gc/Cl: negative, RPR: non-react paxton, ABO: O + ; Antibody: negative. ROS: negative except as per HPI Physical Exam: Gen: sitting in bed comfortably, no acute distress Heart: S1 S2 present, RRR Lungs: normal resp effort, clear to auscultation bilaterally Abd: Gravid, soft, non-tender, normal BS SVE: With Client Project Coordinator Dr. Boyd- FT-1 cm dilated, long. Exremities: no swelling/erythema/tenderness EHF: 130 baseline; moderate variability; Accelerations present; category 1 tracing. Assessment and Plan 28 y/o female with IUP @ 38+3 presenting because of loss of mucus plug and possible contracti ons. -continue toco and FHT monitoring -EFM: reassuring category 1 tracing. -Monitor Vital signs - Recheck vaginal exam in 1 hour (@ 1422) Patient reassessed at 1425 - patient is comfortable - Vaginal exam is unchanged- 2 cm- long - reassuring FHT category 1 - Patient is stable for discharge and given Labor precautions. Case discussed w/ attending, Dr. Deb Calderon, PGY-1 Attending Note: Patient was seen and examined with the resident and I agree with the above. Patient was reexamined after 1-2 hours and there was no cervical change. Pelvic Type - PN: Adequate Extremities - PN: Normal Abdomen - PN: Normal Back - PN: Normal Breast - PN: Normal Lungs - PN: Normal Heart - PN: Normal Thyroid - PN: Normal Neurologic - PN: Normal HEENT - PN: Normal General - PN: Normal Presentation-Admit: Vertex FHR - Baseline A Provider: 130 Gestation - Est Wks by US: 38.3 EGA AdmitDate IP: 38.3 Vital Signs Provider: Reviewed; Within Normal Limits IP Chief Complaint: Uterine contractions; Maternal discomfort NICHD Variability Prov Fetus A: Moderate 6-25bpm NICHD Accel Fetus A IP Provider: 15X15 FHR Category Provider Fetus A: Category I NICHD Decel Fetus A IP Provider: None Dilatation, Provider: 1 Effacement, Provider: LONG Genitourinary Exam: Normal DTRs - PN: Normal
== END 2018-07-18 14:38 | disposition home or self-care (01) ==
LOC: H.EROB2 13:53
DX: O26.93 Pregnancy related conditions, unspecified, third trimester (principal); R10.2 Pelvic and perineal pain; M54.5 Low back pain; O47.1 False labor at or after 37 completed weeks of gestation; Z3A.37 37 weeks gestation of pregnancy

== ENCOUNTER 2018-07-29 09:24 | Inpatient (IN) | payer OTHER ==
[2018-07-29 10:13] VITALS: BMI 26.8
[2018-07-29] MEDS ORDERED: Lactated Ringer's 1,000 ML IV SCH ×2 (11:30→17:15)
[2018-07-29] MEDS ORDERED: Oxytocin 30 UNIT 30 UNITS/500 ML BAG IV ONE (11:57)
[2018-07-29] MEDS ORDERED: OXYTOCIN/0.9 % NS 20 UNIT/1,000 ML BAG IV ONE (11:57)
[2018-07-29 12:00] LABS: BASO % 0.4 % (0.0-2.0); EOS # 0.1 K/uL (0.0-0.7); EOS % 1.2 % (0.0-4.0); HEMOGLOBIN 10.2 g/dL (12.0-16.0); LYMPH # 2.5 K/uL (1.0-4.3); LYMPH % 21.4 % (20.0-40.0); MEAN CELL VOLUME 68.7 fl (81.0-99.0); MEAN CORPUSCULAR HEMOGLOBIN 21.9 pg (27.0-31.0); MEAN CORPUSCULAR HGB CONC 31.8 g/dL (33.0-37.0); MEAN PLATELET VOLUME 8.6 fl (7.2-11.7); MONO # 0.9 K/uL (0.0-0.8); MONO % 7.9 % (0.0-10.0); NEUT % 69.1 % (50.0-75.0); RBC 4.66 Mil/uL (3.80-5.20); RED CELL DISTRIBUTION WIDTH 18.4 % (11.5-14.5); WHITE BLOOD COUNT 11.6 K/uL (4.8-10.8)
[2018-07-29] MEDS ORDERED: Lidocaine 1% Inj (20ml) ONE (13:57)
[2018-07-29] MEDS ORDERED: Benzocaine/Menthol SPRAY TOP PRN ×2 (22:09→23:51)
[2018-07-29] MEDS ORDERED: Oxycodone/Acetaminophen 5/325 mg Tab PO PRN ×2 (22:09→23:51)
[2018-07-30] MEDS: Levothyroxine 75 MCG TAB PO SCH (06:05)
[2018-07-30] MEDS ORDERED: Levothyroxine 75 MCG TAB PO SCH (06:30)
[2018-07-30 06:38] LABS: BASO % 0.1 % (0.0-2.0); EOS # 0.1 K/uL (0.0-0.7); EOS % 0.3 % (0.0-4.0); HEMOGLOBIN 9.3 g/dL (12.0-16.0); LYMPH % 11.7 % (20.0-40.0); MEAN CELL VOLUME 70.9 fl (81.0-99.0); MEAN CORPUSCULAR HEMOGLOBIN 22.4 pg (27.0-31.0); MEAN CORPUSCULAR HGB CONC 31.5 g/dL (33.0-37.0); MEAN PLATELET VOLUME 8.8 fl (7.2-11.7); MONO # 0.9 K/uL (0.0-0.8); MONO % 5.1 % (0.0-10.0); NEUT # 14.4 K/uL (1.8-7.0); NEUT % 82.8 % (50.0-75.0); RBC 4.17 Mil/uL (3.80-5.20); RED CELL DISTRIBUTION WIDTH 18.4 % (11.5-14.5); WHITE BLOOD COUNT 17.4 K/uL (4.8-10.8)
[2018-07-30] MEDS ORDERED: Multivitamin With Minerals Tab PO SCH (09:00)
[2018-07-30] MEDS: Multivitamin With Minerals Tab PO SCH ×2 (13:22→17:38)
--- NOTE | 2018-07-30 15:11 | OBPPN ---
Datetime: 07/30/2018 15:06 PP Pain Prov: Within normal limits PP Nausea Prov: Denies PP Flatus Prov: Yes PP Breasts Prov: Normal PP Heart Prov: Normal PP Lungs Prov: Normal PP Abdomen/Uterus Prov: Normal PP Lochia Prov: Normal PP Vulva/Perineum Prov: Normal PP CVA Tenderness Prov: Normal PP Extremities Prov: Normal PP Comments Phys Exam Prov: FUndus firm PP Impression Prov: Normal progression PP Plan Prov: Continue present management PP Progress Note Prov: Patient denies CP, no SOB, no N/v, tolerating PO diet, ambulating/voiding wel l, mild lochia, abdominal pain tolerable with meds, mild lochia A/P PPD #1 1. COntinue orders 2. ENcourage ambulation/ IP PP Procedures: None Vital Signs Provider PP: Reviewed; Within Normal Limits
--- NOTE | 2018-07-30 15:11 | OBADHP ---
Datetime: 07/29/2018 11:53 Admit Comment, IP Provider: 28 y/o female with IUP at 40.0 wk GA presents to [facility] w/ c/o elroy nful contractions that began at 7 am today. She denies VB and VFL. She endorses movement. She d enies headaches, changes in vision, CP, SOB, and dysuria. OB: Dr. Curry Obhx: X4: 10/28/ - 8lbs; 03/12/13 : 8lbs 5 oz ; 05/10/14: 8 lbs 10 oz ; 01/09/17 : 8lbs 8 oz Pmhx: Hypothyroidism HomeRx: PNV daily, Ferrous sulfate daily; Levothyroxine 75 mcg daily. Famhx: Mother with Brain tumor, seizures, HTN and heart disease. Social hx: Denies smoking history, alcohol use and illicit drug use. SurgHx: Denies Allergies: Macrobid- causes a rash. Labs: GBS neg, HIV neg, RPR neg, Rubella immune, Gc/Cl: negative, RPR: non-reactive, ABO: O + ; An tibody: negative. ROS negative except as per HPI Physical Exam: Gen: lying in bed; appears uncomfortable Heart: S1 S2 present, RRR Lungs: normal resp effort, clear to auscultation bilaterally Abd: Gravid, soft, non-tender, normal BS SVE: With [employer] Plant Operations Engineer Yoana: 3-4cm/ 80/-3 Exremities: no swelling/erythema/tenderness EHF: 140 baseline; moderate variability; Accelerations present; category 1 tracing. Assessment and Plan 28 y/o female IUP @ 40wk GA SVE: 4-5cm/75% at admission; active labor GBS neg, HIV neg, RPR neg, Rubella immune, HBsAg neg Admit patient to L_D CBC, type and screen 1L LR IV bouls x2 Patient does not want epidural NPO Case discussed w/ attending, Dr. Jostin Frederick, pgyi Pelvic Type - PN: Adequate Extremities - PN: Normal Abdomen - PN: Normal Back - PN: Not Done Breast - PN: Not Done Lungs - PN: Normal Heart - PN: Normal Thyroid - PN: Not Done Neurologic - PN: Not Done HEENT - PN: Not Done General - PN: Normal FHR - Baseline A Provider: 150 Gestation - Est Wks by US: 40.0 IP Hx Assessment: The History has been Reviewed and is Current Vital Signs Provider: Reviewed; Within Normal Limits IP Chief Complaint: Uterine contractions NICHD Variability Prov Fetus A: Moderate 6-25bpm NICHD Accel Fetus A IP Provider: [id number] NICHD Decel Fetus A IP Provider: None Dilatation, Provider: 4-5cm Effacement, Provider: 75 Station, Provider: -3 Genitourinary Exam: Not Done DTRs - PN: Not Done EGA AdmitDate IP: 40.0 IP Adm Impression: Term, intrauterine IP Admit Plan: Admit to unit; Initiate labor protocol Datetime: 07/29/2018 10:00 FHR Category Provider Fetus A: Category I Datetime: 07/18/2018 14:39 Presentation-Admit: Vertex Datetime: 07/09/2018 20:00 Pool Provider: Negative Nitrazine Provider: Negative Datetime: 06/23/2018 13:20 IP Chief Complaint Other: Pelvic pain IP Fetus A Comments: Reactive NST Datetime: 05/24/2018 13:56 Membranes, Provider: Intact
--- NOTE | 2018-07-30 15:11 | OBDS ---
DELIVERY PERSONNEL Delivery Doctor: Aminata Frankel MD Switchman: Mary Lou Linder RN MATERNAL INFORMATION Delivery Anesthesia: None Medications in Delivery: Pitocin Estimated Blood Loss (ml): 200 Placenta Cultured: No Maternal Complications: None Provider Comments: Normal spontaneous vaginal delivery. Patient delivered viable with Apgars of 9 and 9 at 1 5 minutes respectively. Placenta deli kash spontaneously. Uterus firm and appropriately hemostatic following delivery. No lacerations, p erineum intact. Patient tolerated delivery well. No complications. Estimated blood loss 200 cc. LABOR SUMMARY EDC: 07/29/2018 00:00 EDC: 07/29/2018 00:00 EDC: 07/29/2018 00:00 EDC: 07/29/2018 00:00 EDC: 07/29/2018 00:00 No. Babies in Womb: 1 Attempted: No Labor Anesthesia: None LABOR INFORMATION Reason for Induction: Not Applicable Onset of Labor: 07/29/2018 06:30 Complete Dilatation: 07/29/2018 21:05 Oxytocin: N/A Group B Beta Strep: Negative Antibiotics # of Doses: N/A Antibiotics Time of Last Dose: N/A Steroids Given: None Reason Steroids Not Administered: Not Applicable MEMBRANES Membranes Rupture Method: Artificial Rupture of Membranes: 07/29/2018 18:13 Length of Rupture (hrs): 3.07 Amniotic Fluid Color: Clear Amniotic Fluid Amount: Small Amniotic Fluid Odor: Normal STAGES OF LABOR Stage 1 hrs: 14 Stage 1 min: 35 Stage 2 hrs: 0 Stage 2 min: 12 Stage 3 hrs: 0 Stage 3 min: 3 Total Time in Labor hrs: 14 Total Time in Labor min: 50 VAGINAL DELIVERY Episiotomy: None Laceration Extension: N/A Laceration Type: None Initial Vag Sponge Count: 5 Final Vag Sponge Count: 5 Initial Vag Sharps Count: 0 Final Vag Sharps Count: 0 Sponge Count Correct: Yes Sharps Count Correct: N/A BABY A INFORMATION Delivery Date/Time: 07/29/2018 21:17 Method of Delivery: Vaginal Born in Route : No : N/A Forceps: N/A Vacuum Extraction: N/A Shoulder Dystocia : No SHOULDER DYSTOCIA BABY A Delivery Date/Time: 07/29/2018 21:17 PRESENTATION/POSITION BABY A Presentation: Cephalic Cephalic Presentation: Vertex Breech Presentation: N/A PLACENTA INFORMATION BABY A Placenta Delivery Time : 07/29/2018 21:20 Placenta Method of Delivery: Spontaneous Placenta Status: Delivered SCORES BABY A Heart Rate 1 min: >100 bpm Resp Effort 1 min: Good Cry Reflex Irritability 1 min: Cough or Sneeze or Pulls Away Muscle Tone 1 min: Active Motion Color 1 min: Body [place], Extremities Blue Resuscitation Effort 1 min: Tactile Stimulation SCORE 1 MIN: 9 Heart Rate 5 min: >100 bpm Resp Effort 5 min: Good Cry Reflex Irritability 5 min: Cough or Sneeze or Pulls Away Muscle Tone 5 min: Active Motion Color 5 min: Body [place], Extremities Blue Resuscitation Effort 5 min: N/A SCORE 5 MIN: 9 INFORMATION BABY A Gestational Age at Delivery: 40.0 Gestational Status: Term Outcome : Liveborn Condition : Stable Sex: Male Sex: Male IDENTIFICATION/MEDS BABY A ID Band Number: [id number] ID Band Location: Left Leg; Left Arm WEIGHT/LENGTH BABY A Infant Birthweight (gms): 3475 Weight (lb): 7 Weight (oz): 11 CORD INFORMATION BABY A No. Cord Vessels: 3 Nuchal Cord : N/A Suction: Mouth; Nose ASSESSMENT BABY A Infant Complications: None Physical Findings at Delivery: Within Normal Limits Infant Respirations: Appears Normal Rn Social Work/ALS Called : No Infant Care By: Tejal RN Transferred To: Remains with Mother
--- NOTE | 2018-07-30 15:11 | OBDS ---
DELIVERY PERSONNEL Delivery Doctor: Aminata Frankel MD Nurse Intern: Mary Lou Linder RN MATERNAL INFORMATION Delivery Anesthesia: None Medications in Delivery: Pitocin Estimated Blood Loss (ml): 200 Placenta Cultured: No Maternal Complications: None Provider Comments: Normal spontaneous vaginal delivery. Patient delivered viable with Apgars of 9 and 9 at 1 5 minutes respectively. Placenta deli kash spontaneously. Uterus firm and appropriately hemostatic following delivery. No lacerations, p erineum intact. Patient tolerated delivery well. No complications. Estimated blood loss 200 cc. LABOR SUMMARY EDC: 07/29/2018 00:00 No. Babies in Womb: 1 Attempted: No Labor Anesthesia: None LABOR INFORMATION Reason for Induction: Not Applicable Onset of Labor: 07/29/2018 06:30 Complete Dilatation: 07/29/2018 21:05 Oxytocin: N/A Group B Beta Strep: Negative Antibiotics # of Doses: N/A Antibiotics Time of Last Dose: N/A Steroids Given: None Reason Steroids Not Administered: Not Applicable MEMBRANES Membranes Rupture Method: Artificial Rupture of Membranes: 07/29/2018 18:13 Length of Rupture (hrs): 3.07 Amniotic Fluid Color: Clear Amniotic Fluid Amount: Small Amniotic Fluid Odor: Normal STAGES OF LABOR Stage 1 hrs: 14 Stage 1 min: 35 Stage 2 hrs: 0 Stage 2 min: 12 Stage 3 hrs: 0 Stage 3 min: 3 Total Time in Labor hrs: 14 Total Time in Labor min: 50 VAGINAL DELIVERY Episiotomy: None Laceration Extension: N/A Laceration Type: None Initial Vag Sponge Count: 5 Final Vag Sponge Count: 5 Initial Vag Sharps Count: 0 Final Vag Sharps Count: 0 Sponge Count Correct: Yes Sharps Count Correct: N/A BABY A INFORMATION Delivery Date/Time: 07/29/2018 21:17 Method of Delivery: Vaginal Born in Route : No : N/A Forceps: N/A Vacuum Extraction: N/A Shoulder Dystocia : No SHOULDER DYSTOCIA BABY A Infant Delivery Date/Time: 07/29/2018 21:17 PRESENTATION/POSITION BABY A Presentation: Cephalic Cephalic Presentation: Vertex Breech Presentation: N/A PLACENTA INFORMATION BABY A Placenta Delivery Time : 07/29/2018 21:20 Placenta Method of Delivery: Spontaneous Placenta Status: Delivered SCORES BABY A Heart Rate 1 min: >100 bpm Resp Effort 1 min: Good Cry Reflex Irritability 1 min: Cough or Sneeze or Pulls Away Muscle Tone 1 min: Active Motion Color 1 min: Body [place], Extremities Blue Resuscitation Effort 1 min: Tactile Stimulation SCORE 1 MIN: 9 Heart Rate 5 min: >100 bpm Resp Effort 5 min: Good Cry Reflex Irritability 5 min: Cough or Sneeze or Pulls Away Muscle Tone 5 min: Active Motion Color 5 min: Body [place], Extremities Blue Resuscitation Effort 5 min: N/A SCORE 5 MIN: 9 INFORMATION BABY A Gestational Age at Delivery: 40.0 Gestational Status: Term Outcome : Liveborn Infant Condition : Stable Infant Sex: Male IDENTIFICATION/MEDS BABY A ID Band Number: [id number] ID Band Location: Left Leg; Left Arm WEIGHT/LENGTH BABY A Infant Birthweight (gms): 3475 Infant Weight (lb): 7 Weight (oz): 11 CORD INFORMATION BABY A No. Cord Vessels: 3 Nuchal Cord : N/A Infant Suction: Mouth; Nose ASSESSMENT BABY A Infant Complications: None Physical Findings at Delivery: Within Normal Limits Infant Respirations: Appears Normal Supervisor [employer]ing/ALS Called : No Care By: Tejal MCKINLEY Transferred To: Remains with Mother
[2018-07-31] MEDS: Levothyroxine 75 MCG TAB PO SCH (07:03)
--- NOTE | 2018-07-31 08:57 | OBPPN ---
Datetime: 07/31/2018 08:48 PP Pain Prov: Within normal limits PP Nausea Prov: Denies PP Flatus Prov: Yes PP Breasts Prov: Normal PP Heart Prov: Normal PP Lungs Prov: Normal PP Abdomen/Uterus Prov: Normal PP Lochia Prov: Normal PP Vulva/Perineum Prov: Normal PP CVA Tenderness Prov: Normal PP Extremities Prov: Normal PP Comments Phys Exam Prov: Fundus firm PP Impression Prov: Normal progression PP Plan Prov: Discharge PP Progress Note Prov: Patient denies CP, no SOB, no N/v, tolerating PO diet, ambulating/voiding wel l, mild lochia, abdominal pain tolerable with meds A/P PPD #2 1. Patient for discharge 2. Discharge instructions reviewed IP PP Procedures: None Vital Signs Provider PP: Reviewed; Within Normal Limits
--- NOTE | 2018-07-31 08:57 | OBDCSUM ---
Datetime: 07/31/2018 08:54 Discharged to, Provider: Home Follow up at, Provider: Mauro Disch Instr Activity: Normal activity Disch Instr Diet: Regular Discharge Instructions, Provider: Routine instructions given Discharge Diagnosis, Provider: Term Delivered Discharge Time: 07/31/2018 08:54 Follow up in weeks, Provider: 6 wks Disch Referrals: None Contraception discussed, Prov: Yes
[2018-07-31] MEDS: Multivitamin With Minerals Tab PO SCH (09:34)
[2018-07-31] MEDS ORDERED: Lansinoh for Breast Feeding Mothers TP ONE (20:46)
[2018-08-01 03:21] VITALS: BP 122/83; PULSE 78; RESP 20; TEMP 98.3; O2SAT 99
== END 2018-07-31 19:30 | disposition home or self-care (01) | DRG 373 ==
LOC: H.EROB2 09:24 → H.EROB 10:30 → H.EROB2 11:50 → H.EROB 11:51 → H.L&D 17:27 → H.OB/GYN 22:30
PROVIDERS: ADMIT Obstetrics & Gynecology; ATTEND Obstetrics & Gynecology
PROC: 4A1HXCZ Monitoring of Products of Conception, Cardiac Rate, External Approach (ICD-10-PCS; 2018-07-29)
PROC: 10E0XZZ Delivery of Products of Conception, External Approach (ICD-10-PCS; principal; 2018-07-30)
DX: O99.284 Endocrine, nutritional and metabolic diseases complicating childbirth (principal); Z3A.40 40 weeks gestation of pregnancy; Z37.0 Single live birth; E03.9 Hypothyroidism, unspecified

== ENCOUNTER 2018-11-26 07:21 | Day surgery (SDC) | payer OTHER ==
[2018-11-26 08:28] LABS: BASO % 0.5 % (0.0-2.0); EOS # 0.1 K/uL (0.0-0.7); EOS % 1.6 % (0.0-4.0); HEMOGLOBIN 12.1 g/dL (12.0-16.0); LYMPH # 2.3 K/uL (1.0-4.3); LYMPH % 33.8 % (20.0-40.0); MEAN CELL VOLUME 77.3 fl (81.0-99.0); MEAN CORPUSCULAR HEMOGLOBIN 25.2 pg (27.0-31.0); MEAN CORPUSCULAR HGB CONC 32.6 g/dL (33.0-37.0); MEAN PLATELET VOLUME 7.9 fl (7.2-11.7); MONO # 0.4 K/uL (0.0-0.8); MONO % 6.4 % (0.0-10.0); NEUT # 3.9 K/uL (1.8-7.0); NEUT % 57.7 % (50.0-75.0); NRBC % 0.1 % (0.0-0.0); RBC 4.78 Mil/uL (3.80-5.20); WHITE BLOOD COUNT 6.7 K/uL (4.8-10.8)
[2018-11-26 08:42] VITALS: BMI 20.2
[2018-11-26] MEDS ORDERED: Succinylcholine 200 mg/10 ml Inj IV ONE (09:03)
[2018-11-26] MEDS ORDERED: Rocuronium 10 mg/ml (5 ml) ONE (09:03)
[2018-11-26] MEDS ORDERED: Propofol 10 mg/ml Inj (20 ML) ONE (09:03)
[2018-11-26] MEDS ORDERED: Midazolam 2 MG/2 ML VIAL ONE (09:03)
[2018-11-26] MEDS ORDERED: Lidocaine 4% (Laryng-O-Jet) Kit MM ONE (09:03)
[2018-11-26] MEDS ORDERED: cefOXitin IV 1 gm in Dextrose 1 GM/50 ML BAG IVPB ONE (09:34)
[2018-11-26] MEDS ORDERED: Lactated Ringer's 1,000 ML IV ONE (09:39)
[2018-11-26] MEDS ORDERED: Dexamethasone 4 mg/1 ml ONE (10:02)
[2018-11-26] MEDS ORDERED: Dexamethasone 4 mg/1 ml IVP PRN (10:57)
[2018-11-26] MEDS ORDERED: Oxycodone/Acetaminophen 5/325 mg Tab PO PRN (11:07)
[2018-11-26] MEDS: HYDROmorphone 0.5 mg/0.5 ml ISec IVP PRN ×2 (11:20→11:22)
[2018-11-26 14:15] VITALS: BP 99/58; PULSE 57; RESP 8; TEMP 98.1; O2SAT 100
--- NOTE | 2018-11-29 00:43 | OP ---
PROCEDURE DATE: 11/26/2018 PREOPERATIVE DIAGNOSES: Multiparity and voluntary sterilization. POSTOPERATIVE DIAGNOSES: Multiparity and voluntary sterilization. PROCEDURE PERFORMED: Laparoscopic bilateral tubal sterilization using electrocoagulation. SURGEON: Beny Estevez MD ANESTHESIA USED: General endotracheal by Dr. Saeid Mendoza. ESTIMATED BLOOD LOSS: Minimal. DRAINS USED: None. REPLACEMENTS USED: None. FINDINGS: 1. Uterus appears anteverted, mobile, normal size and shape. 2. Cervix: Multiparous, mobile. No growth or lesion to visualization. 3. Both tubes and ovaries appear grossly within normal limits to inspection bilaterally. 4. Adhesions of the omentum to the right lower quadrant at the side of the previous appendectomy. 5. Bilateral tubal sterilization performed using electrocoagulation without any complication. DESCRIPTION OF PROCEDURE: The patient was taken to the operating room and placed on the operating table in a supine position. Following induction of general endotracheal anesthesia, the patient was then replaced in a dorsal lithotomy position. Perineal and genital areas were draped and prepped in the usual sterile manner. Following this, we then proceeded to place a sterile catheter into the bladder, and clear fluid was then evacuated from the bladder. The patient was then examined under anesthesia with some of the above findings. Heavy weighted speculum was then placed in the posterior wall of the vagina disposing the cervix. The anterior lip of the cervix was then grasped using a single tooth tenaculum and retracted superiorly. At this time, the endocervical canal was gently dilated using Hanks dilators in an increasing sized manner. A HUMI cannula was then inserted gently in the endocervical canal and into the endometrial cavity in order to manipulate the cervix. The single-tooth tenaculum was then removed, no bleeding noted. Attention was then given to the abdomen. At the umbilicus, a Veress needle was then introduced into the abdomen and after testing, about 5 L of carbon dioxide was then introduced into the abdomen. Following creation of pneumoperitoneum, the Veress needle was then removed and a 1-cm incision was then made at the umbilicus. A 10-mm trocar was then placed under direct visualization into the pelvic cavity. Upon entering the pelvic cavity, the trocar sleeve was left in place, and a laparoscope was then introduced into the abdomen. Visualization of the area underneath the trocar insertion reveals no signs of trauma or bleeding. At this time, we then proceeded to notice that the uterus appeared anteverted and mobile, both tubes and ovaries appeared grossly within normal limits to inspection bilaterally. The liver appears without any adhesions, but adhesions of the omentum to the anterior abdominal wall noted to be present at the right lower quadrant area of the previous history of appendectomy. At this time, we then proceeded to place a 5-mm trocar under direct visualization at the symphysis pubis. Through this trocar sheath, a laparoscopic Kleppinger forceps was then introduced into the abdomen. The right fallopian tube was followed through the fimbriated end, was then grasped using the Kleppinger forceps and retracted superiorly and away from adjacent structures. Under direct visualization, about 3 cm resection of the tube was then electrocoagulated. Blanching of the tube were noted to be present. The same procedure was then performed on the contralateral side without any complications. Following bilateral tubal occlusion using electrocoagulation, all operative areas checked, hemostatically secured. Both ovaries appeared to be grossly within normal limits to inspection bilaterally. At this time, the 5-mm trocar was then removed after the pneumoperitoneum was partially evacuated. No bleeding noted from the 5-mm trocar area. Air was then allowed further to escape, and the pneumoperitoneum was then evacuated. The 10-mm trocar and laparoscope were then removed under direct visualization. At this time, we then proceeded to place 0 Vicryl suture at the fascia in the umbilical area in a simple way. The skin was then approximated both incisions using a 3-0 Monocryl subcuticularly. Dermabond was then applied. At this time, we then proceeded to remove the HUMI cannula. The patient tolerated the procedure well. There were no complications. Sponge, instrument, and needle counts were correct x3. She was transferred to the recovery room in satisfactory condition. eBny Estevez MD
== END 2018-11-26 15:10 | disposition home or self-care (01) ==
LOC: H.OPSURG 07:21
PROVIDERS: ATTEND Specialist
DX: Z30.2 Encounter for sterilization (principal)
CPT/HCPCS: 36415; 58670; 85025; J0330; J0694; J1100; J1170; J1885; J2001; J2250; J2405; J2704; J2765; J3010; J7120